=== PATIENT | female | born 1980 | race African-American/Black ===

== ENCOUNTER 2016-04-13 06:16 | Emergency (ER) | payer OTHER, SELFPAY ==
[~2016-04-13 06:16] MED LIST: EFFE37.527 PO; HYDR-4274 PO; PROA1AER IN; REST15CA PO; TRAZ100T4 PO; TRAZ50TA4 PO
[2016-04-13] MEDS ORDERED: ONDANSETRON 4 MG ORAL DISINTEGRATING TAB (S0181) As Ordered ONE (06:54)
--- NOTE | 2016-04-13 08:06 | EDDOCDS ---
Nurse's Notes [facility] Name: Negrito Russ Age: 35 yrs Sex: Female : 1980 Arrival Date: 04/13/2016 Time: 06:16 Bed 17 Private MD: No Pcp Diagnosis: Nausea and vomiting Presentation: 04/13 06:25 Presenting complaint: Patient states: she woke up at 0400 with vomiting was suppose to start job at [employer] this a.m. but unable to stop vomiting. Adult Sepsis Screening: The patient does not have new or worsening altered mentation. Patient's respiratory rate is less than 22. Systolic blood pressure is greater than 100. Patient has a qSOFA score of 0- Negative Sepsis Screen. Suicide/Homicide risk assessment- the patient denies having any suicidal and/or homicidal ideations and does not present with any other emotional, behavioral or mental health complaints. 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 Transition of care: patient was not received from another setting of care. 06:25 Acuity: SWETHA Level 4 cz 06:25 Method Of Arrival: Wheelchair cz Triage Assessment: 06:28 General: Appears uncomfortable. Pain: Location: abdomen Pain currently is 7 out of 10 cz on a pain scale. HIV screening NA for this visit Offered previously. 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 albuterol sulfate 90 mcg/actuation Inhl HFAA 2 puffs every 4-6 hours 2. Effexor 112.5 mg Oral 1 tab daily 3. epi pen as needed 4. mirena 5. prazosin 2 mg Oral cap 1 cap nightly 6. trazodone 100 mg Oral tab 1 tab nightly - PMHx: Asthma; Depression; insommnia; Migraines; - PSHx: right ankle scope; - Social history: Smoking status: Patient states was never smoker of tobacco. No barriers to communication noted, The patient speaks fluent Yakut, Speaks appropriately for age. - Family history: Not pertinent. - : The pt / caregiver states he / she is not on anticoagulants. Home medication list is obtained from [employer] import data. - Exposure Risk Screening:: None identified. Screenin:00 Screening information is obtained from the patient. Fall risk: No risks identified. kcs Assistance ADL's: requires no assistance with activities of daily living. Abuse/DV Screen: The patient / caregiver reports he/she is: not in a situation that causes fear, pain or injury. Nutritional screening: No deficits noted. Advance Directives: Currently, there is no health care proxy. There is no living will. home support is adequate. Assessment: 06:47 Adult Sepsis Screening: The patient does not have new or worsening altered mentation. mgs Patient's respiratory rate is less than 22. Systolic blood pressure is greater than 100. General: Appears in no apparent distress. Neurological: Level of Consciousness is awake, alert. Cardiovascular: Capillary refill < 3 seconds Heart tones S1 S2 present. Respiratory: Airway is patent Respiratory effort is even, unlabored, Respiratory pattern is regular, symmetrical. GI: Abdomen is non- distended Bowel sounds present X 4 quads. Abd is soft and non tender X 4 quads. Derm: Skin is normal. 06:50 Neurological: Reports dizziness. mgs 07:47 Reassessment: Patient ambulatory to and from room to bathroom to void. Returned to room kcs and vomiting loudly - provider informed.. 08:00 Reassessment: Patient anxious for discharge and wants to go now. Still nauseated.. kcs General: Appears comfortable, well developed, well nourished, well groomed, Behavior is cooperative, pleasant. Pain: Denies pain. Neurological: Level of Consciousness is awake, alert. Respiratory: Airway is patent Respiratory effort is even, unlabored, Respiratory pattern is regular, symmetrical. Derm: Skin is intact, is healthy with good turgor, Skin is dry, Skin is normal. Vital Signs: 06:28 BP 140 / 79; Pulse 104; Resp 16; Temp 96.8; Pulse Ox 97% ; cz 07:29 BP 126 / 83; Pulse 84; Resp 16; Temp 97.8(TE); Pulse Ox 97% on R/A; Pain 0/10; dem1 ED Course: 06:18 Patient visited by Anuja Pierre. lja 06:18 Patient moved to Waiting lja 06:23 No Pcp is Private Physician. lja 06:26 Triage Initiated cz 06:30 Patient moved to 17 cz 06:44 Isaias Hager,TACO is Primary Nurse. mgs 06:48 Patient visited by Isaias Hager RN. mgs 06:55 Selwyn Vargas PA is PHCP. btw 06:55 Paige Miranda MD is Attending Physician. btw 07:09 Report received from Federico Hager RN. kcs 07:12 Patient visited by Selwyn Vargas PA. btw 07:22 [facility] is Referral Physician. btw 07:30 Patient visited by Leon Pop. dem1 08:00 The patient / caregiver is instructed regarding the plan of care and ED course. kcs 08:00 No IV's were initiated during this patient's visit. No procedures done that require kcs assistance. 08:05 [facility] Payment Agreement was scanned into [employer] and attached to record. mm15 Administered Medications: 07:08 Drug: Ondansetron ODT 4 mg [ondansetron 4 mg disintegrating tablet (1 tabs)] Route: PO; mgs Point of Care Testing: Urine : 07:08 hCG Reading: Negative; mgs 07:08 Exp: 01/2018; Lot #: [id number]; mgs Ranges: Order Results: There are currently no results for this order. Outcome: 07:22 Discharge ordered by Provider. btw 08:00 Discharge Assessment: Patient awake, alert and oriented x 3. No cognitive and/or kcs functional deficits noted. Patient verbalized understanding of disposition instructions. Patient awake and alert. patient administered narcotics - no. The following High Risk Discharge criteria are identified: None. Discharged to home ambulatory. Condition: stable. Discharge instructions given to patient, Instructed on discharge instructions, follow up and referral plans. medication usage, Demonstrated understanding of instructions, medications, Pt was receptive of discharge instructions/ teaching. No special radiology studies were completed. Property sent home with patient. 08:05 Patient left the ED. kcs Signatures: Stephani Dasilva RN RN kcs Zecher, Calvin, RN RN cz Wolfenden, Brandon, PA PA btw Leon Pop dem1 Diane Valdez mm15 Isaias Hager RN RN mgs AreAnuja lemos MTDD
--- NOTE | 2016-04-13 08:06 | EDDOCDS ---
Physician Documentation [facility] Name: Negrito Russ Age: 35 yrs Sex: Female : 1980 Arrival Date: 04/13/2016 Time: 06:16 Bed 17 Private MD: No Pcp Disposition: 04/13/16 07:22 Discharged to Home/Self Care. Impression: Nausea and vomiting. - Condition is Stable. - Discharge Instructions: Viral Gastroenteritis, [id number], Nausea and Vomiting, [id number]. - Prescriptions for ZOFRAN ODT 4 mg - dissolve 1 tablet by ORAL route 4 times per day As needed do not chew, do not swallow whole; 10 tablet. - Medication Reconciliation, Local Pharmacy Hours form. - Follow up: [facility]; When: Call to arrange an appointment; Reason: Further diagnostic work-up, Recheck today's complaints, Continuance of care, To establish care. - Problem is new. - Symptoms are unchanged. Historical: - Allergies: Aspirin (Hives); seafood (Anaphylaxis); Tree Nuts (Anaphylaxis); - Home Meds: 1. albuterol sulfate 90 mcg/actuation Inhl HFAA 2 puffs every 4-6 hours 2. Effexor 112.5 mg Oral 1 tab daily 3. epi pen as needed 4. mirena 5. prazosin 2 mg Oral cap 1 cap nightly 6. trazodone 100 mg Oral tab 1 tab nightly - PMHx: Asthma; Depression; insommnia; Migraines; - PSHx: right ankle scope; - Social history: Smoking status: Patient states was never smoker of tobacco. No barriers to communication noted, The patient speaks fluent Paraguayan, Speaks appropriately for age. - Family history: Not pertinent. - : The pt / caregiver states he / she is not on anticoagulants. Home medication list is obtained from [employer] import data. - Exposure Risk Screening:: None identified. 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 sd1 06:51 Ondansetron ODT Oral Disintegrating Tablet 4 mg PO once ordered. sd1 08:05 Financial registration complete. mm15 08:05 [facility] Payment Agreement was scanned into [employer] and attached to record. mm15 Point of Care Testing: Urine : 07:08 hCG Reading: Negative; mgs 07:08 Exp: 01/2018; Lot #: [id number]; mgs Ranges: Administered Medications: 07:08 Drug: Ondansetron ODT 4 mg [ondansetron 4 mg disintegrating tablet (1 tabs)] Route: PO; mgs Signatures: Paige Miranda MD MD sd1 Stephani Dasilva RN RN kcs Jonatan Lopez RN RN cz Selwyn Vargas PA PA btw McGrath, Marlynn mm15 Isaias Hager RN mgs The chart was reviewed and I authenticate all verbal orders and agree with the evaluation and treatment provided.Attachments: 08:05 [facility] Payment Agreement mm15 MTDD
--- NOTE | 2016-04-15 09:07 | EDDOCDS ---
Physician Documentation [facility] Name: Negrito Russ Age: 35 yrs Sex: Female : 1980 Arrival Date: 04/13/2016 Time: 06:16 Bed 17 Private MD: No Pcp Disposition: 04/13/16 07:22 Discharged to Home/Self Care. Impression: Nausea and vomiting. - Condition is Stable. - Discharge Instructions: Viral Gastroenteritis, Ppep-yj-Yigt, Nausea and Vomiting, Rqun-dl-Zujo. - Prescriptions for ZOFRAN ODT 4 mg - dissolve 1 tablet by ORAL route 4 times per day As needed do not chew, do not swallow whole; 10 tablet. - Medication Reconciliation, Local Pharmacy Hours form. - Follow up: [facility]; When: Call to arrange an appointment; Reason: Further diagnostic work-up, Recheck today's complaints, Continuance of care, To establish care. - Problem is new. - Symptoms are unchanged. Historical: - Allergies: Aspirin (Hives); seafood (Anaphylaxis); Tree Nuts (Anaphylaxis); - Home Meds: 1. albuterol sulfate 90 mcg/actuation Inhl HFAA 2 puffs every 4-6 hours 2. Effexor 112.5 mg Oral 1 tab daily 3. epi pen as needed 4. mirena 5. prazosin 2 mg Oral cap 1 cap nightly 6. trazodone 100 mg Oral tab 1 tab nightly - PMHx: Asthma; Depression; insommnia; Migraines; - PSHx: right ankle scope; - Social history: Smoking status: Patient states was never smoker of tobacco. No barriers to communication noted, The patient speaks fluent Kuwaiti, Speaks appropriately for age. - Family history: Not pertinent. - : The pt / caregiver states he / she is not on anticoagulants. Home medication list is obtained from [employer] import data. - Exposure Risk Screening:: None identified. 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 sd1 06:51 Ondansetron ODT Oral Disintegrating Tablet 4 mg PO once ordered. sd1 08:05 Financial registration complete. mm15 08:05 [facility] Payment Agreement was scanned into [employer] and attached to record. mm15 12:28 T-Sheet-- Draft Copy was scanned into [employer] and attached to record. gb Point of Care Testing: Urine : 07:08 hCG Reading: Negative; mgs 07:08 Exp: 01/2018; Lot #: [id number]; mgs Ranges: Administered Medications: 07:08 Drug: Ondansetron ODT 4 mg [ondansetron 4 mg disintegrating tablet (1 tabs)] Route: PO; mgs Signatures: Paige Miranda MD MD sd1 Stephani Dasilva RN RN kcs Jonatan Lopez RN RN cz Jacque Gaines, Reg Reg gb Selwyn Vargas PA PA btw McGrath, Marlynn mm15 Isaias Hager RN mgs The chart was reviewed and I authenticate all verbal orders and agree with the evaluation and treatment provided.Attachments: 08:05 [facility] Payment Agreement mm15 12:28 T-Sheet-- Draft Copy gb Chart Complete MTDD
--- NOTE | 2016-04-15 09:07 | EDDOCDS ---
Nurse's Notes [facility] Name: Negrito Russ Age: 35 yrs Sex: Female : 1980 Arrival Date: 04/13/2016 Time: 06:16 Bed 17 Private MD: No Pcp Diagnosis: Nausea and vomiting Presentation: 04/13 06:25 Presenting complaint: Patient states: she woke up at 0400 with vomiting was suppose to start job at [employer] this a.m. but unable to stop vomiting. Adult Sepsis Screening: The patient does not have new or worsening altered mentation. Patient's respiratory rate is less than 22. Systolic blood pressure is greater than 100. Patient has a qSOFA score of 0- Negative Sepsis Screen. Suicide/Homicide risk assessment- the patient denies having any suicidal and/or homicidal ideations and does not present with any other emotional, behavioral or mental health complaints. 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 Transition of care: patient was not received from another setting of care. 06:25 Acuity: SWETHA Level 4 cz 06:25 Method Of Arrival: Wheelchair cz Triage Assessment: 06:28 General: Appears uncomfortable. Pain: Location: abdomen Pain currently is 7 out of 10 cz on a pain scale. HIV screening NA for this visit Offered previously. 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 albuterol sulfate 90 mcg/actuation Inhl HFAA 2 puffs every 4-6 hours 2. Effexor 112.5 mg Oral 1 tab daily 3. epi pen as needed 4. mirena 5. prazosin 2 mg Oral cap 1 cap nightly 6. trazodone 100 mg Oral tab 1 tab nightly - PMHx: Asthma; Depression; insommnia; Migraines; - PSHx: right ankle scope; - Social history: Smoking status: Patient states was never smoker of tobacco. No barriers to communication noted, The patient speaks fluent Italian, Speaks appropriately for age. - Family history: Not pertinent. - : The pt / caregiver states he / she is not on anticoagulants. Home medication list is obtained from [employer] import data. - Exposure Risk Screening:: None identified. Screenin:00 Screening information is obtained from the patient. Fall risk: No risks identified. kcs Assistance ADL's: requires no assistance with activities of daily living. Abuse/DV Screen: The patient / caregiver reports he/she is: not in a situation that causes fear, pain or injury. Nutritional screening: No deficits noted. Advance Directives: Currently, there is no health care proxy. There is no living will. home support is adequate. Assessment: 06:47 Adult Sepsis Screening: The patient does not have new or worsening altered mentation. mgs Patient's respiratory rate is less than 22. Systolic blood pressure is greater than 100. General: Appears in no apparent distress. Neurological: Level of Consciousness is awake, alert. Cardiovascular: Capillary refill < 3 seconds Heart tones S1 S2 present. Respiratory: Airway is patent Respiratory effort is even, unlabored, Respiratory pattern is regular, symmetrical. GI: Abdomen is non- distended Bowel sounds present X 4 quads. Abd is soft and non tender X 4 quads. Derm: Skin is normal. 06:50 Neurological: Reports dizziness. mgs 07:47 Reassessment: Patient ambulatory to and from room to bathroom to void. Returned to room kcs and vomiting loudly - provider informed.. 08:00 Reassessment: Patient anxious for discharge and wants to go now. Still nauseated.. kcs General: Appears comfortable, well developed, well nourished, well groomed, Behavior is cooperative, pleasant. Pain: Denies pain. Neurological: Level of Consciousness is awake, alert. Respiratory: Airway is patent Respiratory effort is even, unlabored, Respiratory pattern is regular, symmetrical. Derm: Skin is intact, is healthy with good turgor, Skin is dry, Skin is normal. Vital Signs: 06:28 BP 140 / 79; Pulse 104; Resp 16; Temp 96.8; Pulse Ox 97% ; cz 07:29 BP 126 / 83; Pulse 84; Resp 16; Temp 97.8(TE); Pulse Ox 97% on R/A; Pain 0/10; dem1 ED Course: 06:18 Patient visited by Anuja Pierre. lja 06:18 Patient moved to Waiting lja 06:23 No Pcp is Private Physician. lja 06:26 Triage Initiated cz 06:30 Patient moved to 17 cz 06:44 Isaias Hager,TACO is Primary Nurse. mgs 06:48 Patient visited by Isaias Hager RN. mgs 06:55 Selwyn Vargas PA is PHCP. btw 06:55 Paige Miranda MD is Attending Physician. btw 07:09 Report received from Federico Hager RN. kcs 07:12 Patient visited by Selwyn Vargas PA. btw 07:22 [facility] is Referral Physician. btw 07:30 Patient visited by Leon Pop. dem1 08:00 The patient / caregiver is instructed regarding the plan of care and ED course. kcs 08:00 No IV's were initiated during this patient's visit. No procedures done that require kcs assistance. 08:05 [facility] Payment Agreement was scanned into [employer] and attached to record. mm15 12:28 T-Sheet-- Draft Copy was scanned into [employer] and attached to record. gb Administered Medications: 07:08 Drug: Ondansetron ODT 4 mg [ondansetron 4 mg disintegrating tablet (1 tabs)] Route: PO; mgs Point of Care Testing: Urine : 07:08 hCG Reading: Negative; mgs 07:08 Exp: 01/2018; Lot #: [id number]; mgs Ranges: Order Results: There are currently no results for this order. Outcome: 07:22 Discharge ordered by Provider. btw 08:00 Discharge Assessment: Patient awake, alert and oriented x 3. No cognitive and/or kcs functional deficits noted. Patient verbalized understanding of disposition instructions. Patient awake and alert. patient administered narcotics - no. The following High Risk Discharge criteria are identified: None. Discharged to home ambulatory. Condition: stable. Discharge instructions given to patient, Instructed on discharge instructions, follow up and referral plans. medication usage, Demonstrated understanding of instructions, medications, Pt was receptive of discharge instructions/ teaching. No special radiology studies were completed. Property sent home with patient. 08:05 Patient left the ED. kcs Signatures: Stephani Dasilva RN RN kcs Zecher, Calvin, RN RN cz Jacque Gaines, Reg Reg gb Selwyn Vargas PA PA btw Leon Pop dem1 Diane Valdez mm15 Isaias Hager RN RN mgs Arel, Anuja lja Chart Complete MTDD
--- NOTE | 2016-04-15 09:07 | EDDOCDS ---
Physician Documentation [facility] Name: Negrito Russ Age: 35 yrs Sex: Female : 1980 Arrival Date: 04/13/2016 Time: 06:16 Bed 17 Private MD: No Pcp Disposition: 04/13/16 07:22 Discharged to Home/Self Care. Impression: Nausea and vomiting. - Condition is Stable. - Discharge Instructions: Viral Gastroenteritis, Sbjb-[id number], Nausea and Vomiting, [id number]-nw-[id number]. - Prescriptions for ZOFRAN ODT 4 mg - dissolve 1 tablet by ORAL route 4 times per day As needed do not chew, do not swallow whole; 10 tablet. - Medication Reconciliation, Local Pharmacy Hours form. - Follow up: [facility]; When: Call to arrange an appointment; Reason: Further diagnostic work-up, Recheck today's complaints, Continuance of care, To establish care. - Problem is new. - Symptoms are unchanged. Historical: - Allergies: Aspirin (Hives); seafood (Anaphylaxis); Tree Nuts (Anaphylaxis); - Home Meds: 1. albuterol sulfate 90 mcg/actuation Inhl HFAA 2 puffs every 4-6 hours 2. Effexor 112.5 mg Oral 1 tab daily 3. epi pen as needed 4. mirena 5. prazosin 2 mg Oral cap 1 cap nightly 6. trazodone 100 mg Oral tab 1 tab nightly - PMHx: Asthma; Depression; insommnia; Migraines; - PSHx: right ankle scope; - Social history: Smoking status: Patient states was never smoker of tobacco. No barriers to communication noted, The patient speaks fluent Bulgarian, Speaks appropriately for age. - Family history: Not pertinent. - : The pt / caregiver states he / she is not on anticoagulants. Home medication list is obtained from [employer] import data. - Exposure Risk Screening:: None identified. 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 sd1 06:51 Ondansetron ODT Oral Disintegrating Tablet 4 mg PO once ordered. sd1 08:05 Financial registration complete. mm15 08:05 [facility] Payment Agreement was scanned into [employer] and attached to record. mm15 12:28 T-Sheet-- Draft Copy was scanned into [employer] and attached to record. gb Point of Care Testing: Urine : 07:08 hCG Reading: Negative; mgs 07:08 Exp: 01/2018; Lot #: [id number]; mgs Ranges: Administered Medications: 07:08 Drug: Ondansetron ODT 4 mg [ondansetron 4 mg disintegrating tablet (1 tabs)] Route: PO; mgs Signatures: Paige Miranda MD MD sd1 Stephani Dasilva RN RN kcs Jonatan Lopez RN RN cz Jacque Gaines, Reg Reg gb Selwyn Vargas PA PA btw McGrath, Marlynn mm15 Isaias Hager RN mgs The chart was reviewed and I authenticate all verbal orders and agree with the evaluation and treatment provided.Attachments: 08:05 [facility] Payment Agreement mm15 12:28 T-Sheet-- Draft Copy gb Chart Complete MTDD
== END 2016-04-13 08:05 | disposition home or self-care (01) ==
LOC: M ED 06:16
DX: R11.2 Nausea with vomiting, unspecified (principal); J45.909 Unspecified asthma, uncomplicated; F32.9 Major depressive disorder, single episode, unspecified; G47.00 Insomnia, unspecified; G43.909 Migraine, unspecified, not intractable, without status migrainosus; Z97.5 Presence of (intrauterine) contraceptive device; Z79.51 Long term (current) use of inhaled steroids; Z79.899 Other long term (current) drug therapy; Z88.6 Allergy status to analgesic agent; Z91.013 Allergy to seafood; Z91.010 Allergy to peanuts

== ENCOUNTER 2016-08-31 22:19 | Emergency (ER) | payer OTHER ==
[~2016-08-31] VITALS: Ht 180.3 cm; Wt 83.9 kg
[2016-09-01] MEDS ORDERED: NORCO, ANEXSIA 5/325MG TABLET (HYDROcodone/ACETAMINOPHEN) PO ONE
[2016-09-01 00:04] VITALS: BP 140/87
--- NOTE | 2016-09-01 07:47 | REP ---
Clinical: Trauma. Technique: AP, lateral, bilateral oblique views of the left ankle. Findings: Minimally displaced fracture of the distal fibular metaphysis / lateral malleolus with overlying soft tissue swelling. Remainder examination appears normal for age. Impression: Fracture of the distal fibular metaphysis / lateral malleolus. Signed by Regino Jones MD 09/01/2016 07:39 A
== END 2016-09-01 00:19 | disposition home or self-care (01) ==
LOC: EDBD 22:19 → M ED 22:46
DX: S82.832A Other fracture of upper and lower end of left fibula, initial encounter for closed fracture (principal); W19.XXXA Unspecified fall, initial encounter; Y92.099 Unspecified place in other non-institutional residence as the place of occurrence of the external cause; Y93.89 Activity, other specified; Y99.8 Other external cause status; Z91.010 Allergy to peanuts; Z91.013 Allergy to seafood; Z88.6 Allergy status to analgesic agent; Z79.899 Other long term (current) drug therapy

== ENCOUNTER 2016-11-03 13:36 | Outpatient (RCR) | payer OTHER ==
[~2016-11-03 13:36] MED LIST changes: -HYDR-4274 PO; +HYDR50TA70 PO; -PROA1AER IN; +PROAAER10 IN; +TRAZ-136 PO; -TRAZ100T4 PO; +TRAZ50TA11 PO; -TRAZ50TA4 PO
[2017-02-13] MEDS ORDERED: PRAZ2CAP PO (10:05)
[2017-02-13] MEDS ORDERED: MUCI600T37 PO (11:32)
[2017-02-13] MEDS ORDERED: ZOFR4TAB3 PO (11:32)
[2017-02-13] MEDS ORDERED: LEVAINH INH (11:32)
[2017-02-13] MEDS ORDERED: AUGM875T28 PO (11:32)
== END 2016-11-08 | disposition home or self-care (01) ==
LOC: M PT 13:36
PROVIDERS: ATTEND Physician Assistant Surgical
DX: Z51.89 Encounter for other specified aftercare (principal); S82.65XD Nondisplaced fracture of lateral malleolus of left fibula, subsequent encounter for closed fracture with routine healing; X58.XXXD Exposure to other specified factors, subsequent encounter; Y92.9 Unspecified place or not applicable; Y93.9 Activity, unspecified; Y99.9 Unspecified external cause status

== ENCOUNTER → 2017-03-07 | Outpatient (CLI) | payer OTHER ==
[~2017-03-07] MED LIST changes: +AUGM875T28 PO; +LEVAINH INH; +MUCI600T37 PO; +PRAZ2CAP PO; +ZOFR4TAB3 PO
--- NOTE | 2017-03-07 08:34 | REP ---
Clinical: Hepatomegaly and abdominal pain. Technique: Arrington scale ultrasound using curved array transducer. Findings: The liver is upper limits of normal in size measuring 17.5 cm craniocaudal length and having subtle rounded inferior border. No focal hepatic lesions are identified. The pancreas is unremarkable and without obvious abnormality. The gallbladder is normal without gallstones, wall thickening or pericholecystic fluid. No biliary ductal dilatation is appreciated, and the common bile duct measures 4.6 mm diameter. The right kidney is normal in reniform shape without hydronephrosis and measures 11.5 x 5.7 x 5.3 cm. No ascites. Visualized portions of the abdominal aorta normal. Impression: Mild hepatomegaly. Signed by Regino Jones MD 03/07/2017 08:25 A
== END ==
LOC: M RAD 07:07
PROVIDERS: ATTEND Nurse Practitioner Adult Health
DX: R93.5 Abnormal findings on diagnostic imaging of other abdominal regions, including retroperitoneum (principal); R16.0 Hepatomegaly, not elsewhere classified

== ENCOUNTER 2017-04-09 16:48 | Emergency (ER) | payer OTHER ==
[2017-04-09] MEDS: PROMETHAZINE INJ 25 MG/ML VIAL (J2550) IV (16:45)
[2017-04-09] MEDS: NS 1,000 ML IV ×2 (16:45→18:30)
[2017-04-09] MEDS: KETOROLAC 30 MG/ML VIAL (J1885) IV (16:45)
== END 2017-04-09 19:36 | disposition home or self-care (01) ==
LOC: M ED 16:48
DX: R11.2 Nausea with vomiting, unspecified (principal); R19.7 Diarrhea, unspecified; Z79.2 Long term (current) use of antibiotics; Z79.899 Other long term (current) drug therapy; Z88.8 Allergy status to other drugs, medicaments and biological substances; Z91.010 Allergy to peanuts; Z91.013 Allergy to seafood
CPT/HCPCS: J1885

== ENCOUNTER → 2017-04-24 | Outpatient (CLI) | payer OTHER | LOC: M RAD 14:23 | DX: R05 Cough (principal) | CPT/HCPCS: 71046 ==

== ENCOUNTER 2017-05-03 22:10 | Emergency (ER) | payer OTHER | END 2017-05-03 23:31 | disposition home or self-care (01) | LOC: M ED 22:10 | DX: S40.012A Contusion of left shoulder, initial encounter (principal); W01.198A Fall on same level from slipping, tripping and stumbling with subsequent striking against other object, initial encounter; Y92.009 Unspecified place in unspecified non-institutional (private) residence as the place of occurrence of the external cause; Z79.899 Other long term (current) drug therapy; Z88.8 Allergy status to other drugs, medicaments and biological substances; Z91.010 Allergy to peanuts; Z91.013 Allergy to seafood | CPT/HCPCS: 73030 ==

== ENCOUNTER → 2017-07-03 | Outpatient (CLI) | payer OTHER ==
[2017-07-03 17:51] LABS: BASO # 0.1 10^3/uL (0.0-0.2); BASO % 1.1 % (0.0-1.0); EOS # 0.1 10^3/uL (0.0-0.50); EOS % 1.5 % (0.0-3.0); HEMATOCRIT 42.8 % (36.0-47.0); HEMOGLOBIN 14.6 g/dl (12.0-16.0); IMMATURE GRANULOCYTE % 0.2 % (0-3.0); LYMPH # 2.4 10^3/uL (1.5-4.5); LYMPH % 36.1 % (24.0-44.0); MEAN CORPUSCULAR HEMOGLOBIN 32.3 pg (27.0-33.0); MEAN CORPUSCULAR HGB CONC 34.1 g/dl (32.0-36.5); MEAN CORPUSCULAR VOLUME 94.7 fl (80.0-96.0); MONO # 0.5 10^3/uL (0.0-0.8); MONO % 7.8 % (0.0-5.0); NEUTROPHILS # 3.5 10^3/uL (1.8-7.7); NEUTROPHILS % 53.3 % (36.0-66.0); PLATELET COUNT, AUTOMATED 284 10^3/uL (150-450); RED BLOOD COUNT 4.52 10^6/uL (4.00-5.40); RED CELL DISTRIBUTION WIDTH 12.6 % (11.5-14.5); WHITE BLOOD COUNT 6.6 10^3/uL (4.0-10.0)
[2017-07-03 18:12] LABS: ALBUMIN 4.4 GM/DL (3.2-5.2); ALBUMIN/GLOBULIN RATIO 1.33 (1.00-1.93); ALKALINE PHOSPHATASE 64 U/L (45-117); ALT/SGPT 26 U/L (12-78); ANION GAP 6 MEQ/L (8-16); AST/SGOT 17 U/L (7-37); BILIRUBIN,TOTAL 0.5 MG/DL (0.2-1.0); BLOOD UREA NITROGEN 8 MG/DL (7-18); CALCIUM LEVEL 8.9 MG/DL (8.5-10.1); CARBON DIOXIDE LEVEL 29 MEQ/L (21-32); CHLORIDE LEVEL 109 MEQ/L (98-107); CREATININE FOR GFR 0.88 MG/DL (0.55-1.30); GLOMERULAR FILTRATION RATE > 60.0 (>60); GLUCOSE, FASTING 81 MG/DL (70-100); POTASSIUM SERUM 4.6 MEQ/L (3.5-5.1); SODIUM LEVEL 144 MEQ/L (136-145); TOTAL PROTEIN 7.7 GM/DL (6.4-8.2)
== END ==
LOC: M WUC 11:41
DX: Z13.9 Encounter for screening, unspecified (principal)
CPT/HCPCS: 80053

== ENCOUNTER 2017-07-23 20:16 | Emergency (ER) | payer OTHER ==
[2017-07-23] MEDS: MORPHINE 4 MG/ML 1ML VIAL/SYRINGE (J2270) IV (20:50)
[2017-07-23] MEDS: ONDANSETRON 4MG/2ML VIAL (J2405) IV (20:50)
[2017-07-23 20:51] LABS: BASO # 0.1 10^3/uL (0.0-0.2); BASO % 1.1 % (0.0-1.0); EOS # 0.1 10^3/uL (0.0-0.50); EOS % 1.8 % (0.0-3.0); HEMATOCRIT 42.1 % (36.0-47.0); HEMOGLOBIN 14.9 g/dl (12.0-15.5); IMMATURE GRANULOCYTE % 0.1 % (0-3.0); LYMPH % 41.5 % (24.0-44.0); MEAN CORPUSCULAR HEMOGLOBIN 32.8 pg (27.0-33.0); MEAN CORPUSCULAR HGB CONC 35.4 g/dl (32.0-36.5); MEAN CORPUSCULAR VOLUME 92.7 fl (80.0-96.0); MONO # 0.4 10^3/uL (0.0-0.8); MONO % 5.2 % (0.0-5.0); NEUTROPHILS # 3.6 10^3/uL (1.8-7.7); NEUTROPHILS % 50.3 % (36.0-66.0); PLATELET COUNT, AUTOMATED 260 10^3/uL (150-450); RED BLOOD COUNT 4.54 10^6/uL (4.00-5.40); RED CELL DISTRIBUTION WIDTH 11.8 % (11.5-14.5); WHITE BLOOD COUNT 7.1 10^3/uL (4.0-10.0)
[2017-07-23] MEDS: NS 1,000 ML IV (20:51)
[2017-07-23 21:11] LABS: ANION GAP 7 MEQ/L (8-16); BLOOD UREA NITROGEN 7 MG/DL (7-18); CALCIUM LEVEL 9.2 MG/DL (8.5-10.1); CARBON DIOXIDE LEVEL 29 MEQ/L (21-32); CHLORIDE LEVEL 105 MEQ/L (98-107); CREATININE FOR GFR 0.83 MG/DL (0.55-1.30); GLOMERULAR FILTRATION RATE > 60.0 (>60); GLUCOSE, FASTING 113 MG/DL (70-100); SODIUM LEVEL 141 MEQ/L (136-145)
[2017-07-23] MEDS: KETOROLAC 30 MG/ML VIAL (J1885) IV (21:54)
[2017-07-23] MEDS: CYCLOBENZAPRINE 10 MG TAB PO (21:54)
== END 2017-07-23 22:06 | disposition home or self-care (01) ==
LOC: M ED 20:16
DX: M62.830 Muscle spasm of back (principal); J45.909 Unspecified asthma, uncomplicated; K58.9 Irritable bowel syndrome, unspecified; Z79.899 Other long term (current) drug therapy; Z88.8 Allergy status to other drugs, medicaments and biological substances; Z91.010 Allergy to peanuts; Z91.013 Allergy to seafood
CPT/HCPCS: J2270

== ENCOUNTER → 2017-08-11 | Outpatient (REF) | payer OTHER ==
[2017-08-11 20:20] LABS: CHLAMYDIA DNA AMPLIFICATION NEGATIVE (NEGATIVE); GC DNA AMPLIFICATION NEGATIVE (NEGATIVE)
[2017-08-12 10:50] LABS: HIV 1&2 SCREEN CENTAUR NEGATIVE (NEGATIVE)
[2017-08-16 14:19] LABS: HPV HYBRID CAPTURE II Negative (Negative)
== END ==
LOC: M LAB REF 16:46
DX: Z11.3 Encounter for screening for infections with a predominantly sexual mode of transmission (principal)

== ENCOUNTER → 2017-11-29 | Outpatient (CLI) | payer OTHER ==
[2017-11-29 14:16] LABS: FREE T4 0.78 NG/DL (0.76-1.46)
[2017-12-01 00:06] LABS: TISSUE TRANSGLUTAMINASE IgA <2 U/mL (0-3)
== END ==
LOC: M LAB 12:23
DX: R11.2 Nausea with vomiting, unspecified (principal)
CPT/HCPCS: 84443

== ENCOUNTER 2017-12-08 12:22 | Day surgery (SDC) | payer OTHER ==
[2017-12-08] MEDS: NS 1,000 ML IV (12:30)
[2017-12-08] MEDS ORDERED: PROPOFOL 200 MG/20 ML VIAL As Ordered ×4 (15:23→15:29)
== END 2017-12-08 16:40 | disposition home or self-care (01) ==
LOC: M SDC 12:22
DX: R11.2 Nausea with vomiting, unspecified (principal); R19.7 Diarrhea, unspecified; D12.2 Benign neoplasm of ascending colon; R10.84 Generalized abdominal pain; R19.4 Change in bowel habit; F32.9 Major depressive disorder, single episode, unspecified; Z87.891 Personal history of nicotine dependence; Z88.8 Allergy status to other drugs, medicaments and biological substances; Z79.899 Other long term (current) drug therapy; Z91.010 Allergy to peanuts; Z91.013 Allergy to seafood
CPT/HCPCS: 43235

== ENCOUNTER 2018-05-09 12:10 | Emergency (ER) | payer OTHER ==
[~2018-05-09] VITALS: Ht 180.3 cm; Wt 75.4 kg
[~2018-05-09 12:10] MED LIST changes: +AMOX; +CYCL10TA PO; +EFFE37.5 PO; -EFFE37.527 PO; +IBUP-1022 PO; +PHEN1SUP6 PR; +RANI150T PO; +TESS100C PO; -TRAZ-136 PO; +TRAZ-160 PO; +TRAZ-163 PO; -TRAZ50TA11 PO; +ZOFR4TAB14 PO; -ZOFR4TAB3 PO
[2018-05-09] MEDS ORDERED: DRIS50003 PO (12:19)
[2018-05-09] MEDS ORDERED: ONDANSETRON 4MG/2ML VIAL (J2405) As Ordered ONE (12:31)
[2018-05-09] MEDS ORDERED: ONDANSETRON 4MG/2ML VIAL (J2405) IV ONE (12:45)
[2018-05-09] MEDS ORDERED: NS 1,000 ML IV ONE (12:45)
[2018-05-09] MEDS ORDERED: KETOROLAC 30 MG/ML VIAL (J1885) IV ONE (13:15)
[2018-05-09] MEDS ORDERED: METOCLOPRAMIDE INJ 10MG/2ML VIAL (J2765) IV ONE (13:15)
[2018-05-09 13:32] LABS: HEMATOCRIT 38.7 % (36.0-47.0); HEMOGLOBIN 13.6 g/dl (12.0-15.5); MEAN CORPUSCULAR HEMOGLOBIN 31.9 pg (27.0-33.0); MEAN CORPUSCULAR HGB CONC 35.1 g/dl (32.0-36.5); MEAN CORPUSCULAR VOLUME 90.8 fl (80.0-96.0); PLATELET COUNT, AUTOMATED 315 10^3/uL (150-450); RED BLOOD COUNT 4.26 10^6/uL (4.00-5.40); WHITE BLOOD COUNT 15.7 10^3/uL (4.0-10.0)
[2018-05-09] MEDS ORDERED: diphenhydrAMINE INJ 50MG/ML VIAL (J1200) IV STA (13:42)
[2018-05-09 14:03] LABS: BLOOD UREA NITROGEN 18 MG/DL (7-18); CALCIUM LEVEL 9.3 MG/DL (8.5-10.1); CARBON DIOXIDE LEVEL 19 MEQ/L (21-32); CHLORIDE LEVEL 101 MEQ/L (98-107); CREATININE FOR GFR 0.96 MG/DL (0.55-1.30); GLOMERULAR FILTRATION RATE > 60.0 (>60); GLUCOSE, FASTING 83 MG/DL (70-100); HCG, SERUM QUANTITATIVE < 1.0 MIU/ML; POTASSIUM SERUM 3.6 MEQ/L (3.5-5.1); SODIUM LEVEL 139 MEQ/L (136-145)
[2018-05-09] MEDS ORDERED: AMOXICILLIN 500 MG CAP PO ONE (14:15)
[2018-05-09] MEDS ORDERED: AMOX875T PO (16:15)
[2018-05-09] MEDS ORDERED: ONDA4TAB6 PO (16:15)
[2018-05-09 16:23] VITALS: BP 107/59
== END 2018-05-09 16:30 | disposition home or self-care (01) ==
LOC: EDBD 12:10 → M ED 12:10
DX: J02.0 Streptococcal pharyngitis (principal); G43.909 Migraine, unspecified, not intractable, without status migrainosus; J45.909 Unspecified asthma, uncomplicated
CPT/HCPCS: 80048; 84702; 85027; 87880; 96361; 96374; 96375; 99284; J1200; J1885; J2405; J2765

== ENCOUNTER 2018-11-11 08:00 | Emergency (ER) | payer OTHER ==
[~2018-11-11] VITALS: Ht 180.3 cm; Wt 76.8 kg
[~2018-11-11 08:00] MED LIST changes: +AMOX875T PO; +DRIS50003 PO; +ONDA4TAB6 PO; -TRAZ-160 PO; -TRAZ-163 PO; +TRAZ-252 PO; +TRAZ-257 PO
[2018-11-11] MEDS ORDERED: TENS1TAB2 PO (08:08)
[2018-11-11] MEDS ORDERED: MIRE1IUD IU (08:08)
[2018-11-11] MEDS ORDERED: diphenhydrAMINE INJ 50MG/ML VIAL (J1200) IV STA (08:29)
[2018-11-11] MEDS ORDERED: NS 1,000 ML IV ONE ×2 (08:30→10:00)
[2018-11-11] MEDS ORDERED: ONDANSETRON 4MG/2ML VIAL (J2405) IV ONE (08:30)
[2018-11-11] MEDS ORDERED: ONDANSETRON 4MG/2ML VIAL (J2405) As Ordered ONE (08:31)
[2018-11-11] MEDS ORDERED: diphenhydrAMINE INJ 50MG/ML VIAL (J1200) As Ordered ONE (08:31)
[2018-11-11 08:37] LABS: BASO % 0.7 % (0.0-1.0); EOS # 0.1 10^3/uL (0.0-0.50); EOS % 1.9 % (0.0-3.0); HEMATOCRIT 38.9 % (36.0-47.0); HEMOGLOBIN 13.3 g/dl (12.0-15.5); LYMPH # 2.1 10^3/uL (1.5-4.5); MEAN CORPUSCULAR HEMOGLOBIN 32.9 pg (27.0-33.0); MEAN CORPUSCULAR HGB CONC 34.2 g/dl (32.0-36.5); MEAN CORPUSCULAR VOLUME 96.3 fl (80.0-96.0); MONO # 0.3 10^3/uL (0.0-0.8); MONO % 5.9 % (0.0-5.0); NEUTROPHILS # 3.2 10^3/uL (1.8-7.7); NEUTROPHILS % 55.2 % (36.0-66.0); PLATELET COUNT, AUTOMATED 238 10^3/uL (150-450); RED BLOOD COUNT 4.04 10^6/uL (4.00-5.40); WHITE BLOOD COUNT 5.8 10^3/uL (4.0-10.0)
[2018-11-11 08:56] LABS: BLOOD UREA NITROGEN 10 MG/DL (7-18); CALCIUM LEVEL 8.3 MG/DL (8.5-10.1); CARBON DIOXIDE LEVEL 27 MEQ/L (21-32); CHLORIDE LEVEL 109 MEQ/L (98-107); CREATININE FOR GFR 0.85 MG/DL (0.55-1.30); GLOMERULAR FILTRATION RATE > 60.0 (>60); GLUCOSE, FASTING 106 MG/DL (70-100); SODIUM LEVEL 144 MEQ/L (136-145)
[2018-11-11 08:57] LABS: ERYTHROCYTE SEDIMENTATION RATE 4 mm/hr (0-20)
--- NOTE | 2018-11-11 09:20 | REP ---
Clinical: Acute headache Comparison: 12/03/2014 . Findings: The ventricles, sulci, and cisterns are normal in position and appearance. Arrington-white differentiation is maintained. No acute intracranial hemorrhage, mass/mass effect, pathology or trauma/injury. No evidence for acute infarction. No extra-axial fluid collection. Calvarium is intact. Paranasal sinuses and mastoid air cells are clear. Impression: Normal noncontrast head CT. No evidence for acute intracranial pathology or trauma/injury. Electronically Signed by Regino Jones MD 11/11/2018 09:12 A
[2018-11-11] MEDS ORDERED: ACETAMINOPHEN 500 MG TAB PO ONE (10:00)
[2018-11-11] MEDS ORDERED: PROCHLORPERAZINE 10 MG/2 ML VIAL (J0780) IV ONE (10:00)
[2018-11-11 10:49] LABS: APPEARANCE, URINE CLEAR (CLEAR); BACTERIA, URINE AUTO NEGATIVE (NEGATIVE); BILIRUBIN, URINE AUTO NEGATIVE (NEGATIVE); BLOOD, URINE BLOOD 2+ (NEGATIVE); COLOR, URINE YELLOW (YELLOW); GLUCOSE, URINE (UA) AUTO NEGATIVE (NEGATIVE); KETONE, URINE AUTO NEGATIVE (NEGATIVE); LEUKOCYTE ESTERASE, URINE AUTO NEGATIVE (NEGATIVE); MUCUS, URINE SMALL (NEGATIVE); NITRITE, URINE AUTO NEGATIVE (NEGATIVE); PROTEIN, URINE AUTO NEGATIVE (NEGATIVE); RBC, URINE AUTO 1 /HPF (0-3); SPECIFIC GRAVITY URINE AUTO 1.031 (1.002-1.035); SQUAMOUS EPITHELIAL CELL UR AU 1 /HPF (0-6); UROBILINOGEN, URINE AUTO 0.2 mg/dL (0.0-2.0); WBC, URINE AUTO 2 /HPF (0-3)
[2018-11-11 12:30] VITALS: BP 114/73
== END 2018-11-11 12:34 | disposition home or self-care (01) ==
LOC: M ED 08:00
DX: G43.909 Migraine, unspecified, not intractable, without status migrainosus (principal); Z87.891 Personal history of nicotine dependence; F12.10 Cannabis abuse, uncomplicated
CPT/HCPCS: 70450; 80048; 81001; 85025; 85652; 96361; 96374; 96375; 99284; J0780; J1200; J2405

== ENCOUNTER 2018-11-29 03:52 | Emergency (ER) | payer OTHER ==
[~2018-11-29 03:52] MED LIST changes: +MIRE1IUD IU; +TENS1TAB2 PO; +TRAZ-163 PO; -TRAZ-257 PO
[2018-11-29] MEDS ORDERED: VENL150C43 PO (04:25)
[2018-11-29] MEDS ORDERED: B-2100TA PO (04:25)
[2018-11-29] MEDS ORDERED: VITA50005 PO (04:25)
[2018-11-29] MEDS ORDERED: PRAZ1CAP PO (04:25)
[2018-11-29] MEDS ORDERED: MAGN400T2 PO (04:25)
[2018-11-29] MEDS ORDERED: KETOROLAC 60 MG/2 ML VIAL (J1885) IM ONE (05:00)
[2018-11-29 05:15] VITALS: BP 130/79
--- NOTE | 2018-11-29 07:33 | REP ---
PA and lateral chest: Comparison is 04/24/2017. There is a 7 mm faintly visible nodule in the left upper lobe peripherally, unchanged. The lung schwartz otherwise clear. Cardiac size is normal. The breanna, mediastinum, and skeletal structures are unremarkable. Impression: 7 ml left lung nodule, unchanged from the comparison study. Otherwise, negative PA and lateral chest. Electronically Signed by Ryan Moore MD 11/29/2018 07:25 A
--- NOTE | 2018-11-29 10:40 | ED PDOC ---
Post-Departure Follow-Up rogelio bennett faxed formal report of cxr for fu Jin Aragon MD Nov 29, 2018 10:40
--- NOTE | 2018-11-30 13:22 | ECGEPIP ---
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
== END 2018-11-29 05:28 | disposition home or self-care (01) ==
LOC: M ED 03:52
DX: R07.1 Chest pain on breathing (principal); J06.9 Acute upper respiratory infection, unspecified; R91.1 Solitary pulmonary nodule; J45.909 Unspecified asthma, uncomplicated; Z79.3 Long term (current) use of hormonal contraceptives; Z79.899 Other long term (current) drug therapy; Z91.010 Allergy to peanuts; Z91.013 Allergy to seafood; Z88.8 Allergy status to other drugs, medicaments and biological substances
CPT/HCPCS: 71046; 93005; 96372; 99284; J1885

== ENCOUNTER 2019-02-01 10:49 | Emergency (ER) | payer OTHER ==
[~2019-02-01] VITALS: Ht 180.3 cm; Wt 75.0 kg
[~2019-02-01 10:49] MED LIST changes: +B-2100TA PO; +MAGN400T2 PO; +PRAZ1CAP PO; +VENL150C43 PO; +VITA50005 PO
[2019-02-01] MEDS ORDERED: RANI1TAB38 PO (11:35)
[2019-02-01] MEDS ORDERED: KETOROLAC 60 MG/2 ML VIAL (J1885) IM ONE (12:15)
[2019-02-01] MEDS ORDERED: ACETAMINOPHEN 325 MG TAB PO ONE (12:15)
[2019-02-01 12:37] LABS: BASO # 0.1 10^3/uL (0.0-0.2); BASO % 1.2 % (0.0-1.0); EOS # 0.1 10^3/uL (0.0-0.5); HEMATOCRIT 42.8 % (36.0-47.0); HEMOGLOBIN 14.8 g/dl (12.0-15.5); LYMPH # 1.8 10^3/uL (1.5-5.0); LYMPH % 29.6 % (24.0-44.0); MEAN CORPUSCULAR HEMOGLOBIN 33.5 pg (27.0-33.0); MEAN CORPUSCULAR HGB CONC 34.6 g/dl (32.0-36.5); MEAN CORPUSCULAR VOLUME 96.8 fl (80.0-96.0); MONO # 0.4 10^3/uL (0.0-0.8); MONO % 5.8 % (0.0-5.0); NEUTROPHILS # 3.7 10^3/uL (1.5-8.5); NEUTROPHILS % 61.2 % (36.0-66.0); PLATELET COUNT, AUTOMATED 281 10^3/uL (150-450); RED BLOOD COUNT 4.42 10^6/uL (4.00-5.40); WHITE BLOOD COUNT 6.1 10^3/uL (4.0-10.0)
[2019-02-01 13:09] LABS: BLOOD UREA NITROGEN 13 MG/DL (7-18); C REACTIVE PROTEIN QUANTITATIV 0.34 MG/DL (0.00-0.30); CALCIUM LEVEL 8.9 MG/DL (8.5-10.1); CARBON DIOXIDE LEVEL 28 MEQ/L (21-32); CHLORIDE LEVEL 103 MEQ/L (98-107); CREATININE FOR GFR 0.82 MG/DL (0.55-1.30); GLOMERULAR FILTRATION RATE > 60.0 (>60); GLUCOSE, FASTING 77 MG/DL (70-100); POTASSIUM SERUM 4.3 MEQ/L (3.5-5.1); SODIUM LEVEL 138 MEQ/L (136-145)
--- NOTE | 2019-02-01 14:21 | REP ---
Left lower extremity Duplex Doppler venous ultrasound: Real time compression and duplex Doppler interrogation of the left lower extremity deep venous system is performed. The left common femoral, superficial femoral and popliteal veins are fully compressible with transducer pressure and demonstrate normal spontaneous and phasic flow, without evidence of deep venous thrombosis. Impression: No evidence of deep venous thrombosis of the left lower extremity femoral popliteal venous system. Electronically Signed by Ryan Arrington MD 02/01/2019 02:13 P
[2019-02-01] MEDS ORDERED: KETO10TAB PO (14:49)
[2019-02-01] MEDS ORDERED: CYCL10TA PO (14:49)
[2019-02-01 14:55] VITALS: BP 132/78
--- NOTE | 2019-02-01 15:27 | REP ---
ULTRASOUND LEFT THIGH SOFT TISSUES: Real-time sonographic evaluation of the left thigh soft tissues performed posteriorly where there is pain and swelling. No mass or fluid collection is seen in this region. Electronically Signed by Ryan Arrington MD 02/03/2019 10:57 A
== END 2019-02-01 14:59 | disposition home or self-care (01) ==
LOC: M ED 10:49
DX: R25.2 Cramp and spasm (principal); J45.909 Unspecified asthma, uncomplicated; G43.909 Migraine, unspecified, not intractable, without status migrainosus; Z79.899 Other long term (current) drug therapy; Z97.5 Presence of (intrauterine) contraceptive device; Z91.010 Allergy to peanuts; Z91.018 Allergy to other foods; Z88.8 Allergy status to other drugs, medicaments and biological substances
CPT/HCPCS: 36415; 76882; 80048; 85025; 85379; 85652; 86140; 93971; 96372; 99283; J1885

== ENCOUNTER 2019-02-26 17:44 | Emergency (ER) | payer OTHER, SELFPAY ==
[~2019-02-26] VITALS: Ht 180.3 cm; Wt 74.5 kg
[~2019-02-26 17:44] MED LIST changes: +KETO10TAB PO; +RANI1TAB38 PO
[2019-02-26] MEDS ORDERED: AMOX875T2 (17:54)
[2019-02-26] MEDS ORDERED: BENZ-18 (17:54)
[2019-02-26] MEDS ORDERED: IPRATROPIUM 0.5MG/ALBUTEROL 2.5MG INH SOL UD 3ML (DUONEB)(J7620) NEB ONE (18:30)
[2019-02-26] MEDS ORDERED: predniSONE 20 MG TAB PO ONE (18:30)
--- NOTE | 2019-02-26 18:48 | ECGEPIP ---
[facility] - ED Test Date: 2019-02-26 Pat Name: MEL CORADO Department: Room: - Gender: Female [employer] Supervisor: KELLEN : 1980 Requested By: PIETRO REBOLLEDO PA-C Order Number: [id number] Reading MD: Paige Miranda Measurements Intervals [place] Rate: 76 P: 77 VA: 183 QRS: 40 QRSD: 83 T: 40 QT: 368 QTc: 414 Interpretive Statements SINUS RHYTHM SIMILAR 11/29/18 Electronically Signed on 02-26-2019 18:47:54 EST by Paige Miranda
--- NOTE | 2019-02-26 19:19 | REP ---
REASON: Dyspnea. FINDINGS: The superior mediastinal structures are midline. The cardiac silhouette is unremarkable in size, shape, and position. The diaphragmatic surfaces of the lungs are regular, and the costophrenic angles are clear. The pulmonary schwartz are clear. The imaged osseous structures are intact. IMPRESSION: There is no acute cardiopulmonary disease. Electronically Signed by Elias Sen DO 02/26/2019 07:30 P
[2019-02-26 19:20] LABS: INFLUENZA A AMPLIFICATION NEGATIVE (NEGATIVE); INFLUENZA B AMPLIFICATION NEGATIVE (NEGATIVE)
[2019-02-26] MEDS ORDERED: PRED20TA PO (19:32)
[2019-02-26 19:45] VITALS: BP 118/80
== END 2019-02-26 19:45 | disposition home or self-care (01) ==
LOC: M ED 17:44
DX: J45.901 Unspecified asthma with (acute) exacerbation (principal); Z88.6 Allergy status to analgesic agent; Z91.010 Allergy to peanuts; Z91.013 Allergy to seafood

== ENCOUNTER 2019-03-24 06:50 | Emergency (ER) | payer OTHER ==
[~2019-03-24] VITALS: Ht 180.3 cm; Wt 74.6 kg
[~2019-03-24 06:50] MED LIST changes: +AMOX875T2; +BENZ-18; +PRED20TA PO
[2019-03-24] MEDS ORDERED: FAMO1TAB11 PO (06:57)
[2019-03-24] MEDS ORDERED: NS 1,000 ML IV ONE (07:30)
[2019-03-24] MEDS ORDERED: KETOROLAC 30 MG/ML VIAL (J1885) IV ONE (07:30)
[2019-03-24 07:39] LABS: BASO % 0.2 % (0.0-1.0); HEMATOCRIT 41.2 % (36.0-47.0); HEMOGLOBIN 14.3 g/dl (12.0-15.5); LYMPH # 1.1 10^3/uL (1.5-5.0); LYMPH % 8.6 % (24.0-44.0); MEAN CORPUSCULAR HEMOGLOBIN 32.9 pg (27.0-33.0); MEAN CORPUSCULAR HGB CONC 34.7 g/dl (32.0-36.5); MEAN CORPUSCULAR VOLUME 94.7 fl (80.0-96.0); MONO # 0.4 10^3/uL (0.0-0.8); MONO % 3.4 % (0.0-5.0); NEUTROPHILS # 11.4 10^3/uL (1.5-8.5); NEUTROPHILS % 87.4 % (36.0-66.0); PLATELET COUNT, AUTOMATED 312 10^3/uL (150-450); RED BLOOD COUNT 4.35 10^6/uL (4.00-5.40)
[2019-03-24] MEDS ORDERED: ACETAMINOPHEN 325 MG TAB PO ONE (07:45)
[2019-03-24] MEDS ORDERED: diphenhydrAMINE INJ 50MG/ML VIAL (J1200) IV ONE (07:45)
[2019-03-24 07:57] LABS: BLOOD UREA NITROGEN 19 MG/DL (7-18); C REACTIVE PROTEIN QUANTITATIV 0.36 MG/DL (0.00-0.30); CALCIUM LEVEL 9.4 MG/DL (8.5-10.1); CARBON DIOXIDE LEVEL 20 MEQ/L (21-32); CHLORIDE LEVEL 104 MEQ/L (98-107); CREATININE FOR GFR 0.93 MG/DL (0.55-1.30); GLOMERULAR FILTRATION RATE > 60.0 (>60); GLUCOSE, FASTING 64 MG/DL (70-100); SODIUM LEVEL 139 MEQ/L (136-145)
[2019-03-24] MEDS ORDERED: METOCLOPRAMIDE INJ 10MG/2ML VIAL (J2765) IV ONE (08:00)
[2019-03-24 08:14] LABS: ERYTHROCYTE SEDIMENTATION RATE 6 mm/hr (0-20)
--- NOTE | 2019-03-24 08:50 | REP ---
Chest x-ray: Two views. History: Cough and dyspnea . Comparison study: February 26, 2019 . Findings: The lungs are well inflated and free of infiltrate. There is a granuloma in the left mid lung zone which is unchanged from the prior study as well as a prior chest x-ray from April 24, 2017. The pleural angles are sharp. The heart size is normal. Pulmonary vasculature is not increased. No significant bony abnormality is seen. Impression: No active disease. Granuloma in the left lung. Otherwise negative. Electronically Signed by Nicko Colbert MD 03/24/2019 08:41 A
[2019-03-24] MEDS ORDERED: ONDANSETRON 4MG/2ML VIAL (J2405) IV ONE (09:15)
[2019-03-24 09:49] VITALS: BP 115/66
[2019-03-24 10:00] LABS: APPEARANCE, URINE CLEAR (CLEAR); BACTERIA, URINE AUTO NEGATIVE (NEGATIVE); BILIRUBIN, URINE AUTO NEGATIVE (NEGATIVE); BLOOD, URINE BLOOD 1+ (NEGATIVE); COLOR, URINE YELLOW (YELLOW); GLUCOSE, URINE (UA) AUTO NEGATIVE (NEGATIVE); KETONE, URINE AUTO 1+ mg/dL (NEGATIVE); LEUKOCYTE ESTERASE, URINE AUTO NEGATIVE (NEGATIVE); MUCUS, URINE SMALL (NEGATIVE); NITRITE, URINE AUTO NEGATIVE (NEGATIVE); PROTEIN, URINE AUTO NEGATIVE (NEGATIVE); RBC, URINE AUTO 1 /HPF (0-3); SPECIFIC GRAVITY URINE AUTO 1.023 (1.002-1.035); SQUAMOUS EPITHELIAL CELL UR AU 0 /HPF (0-6); UROBILINOGEN, URINE AUTO 0.2 mg/dL (0.0-2.0); WBC, URINE AUTO 1 /HPF (0-3)
== END 2019-03-24 10:36 | disposition home or self-care (01) ==
LOC: M ED 06:50
DX: G43.909 Migraine, unspecified, not intractable, without status migrainosus (principal); R05 Cough; J02.9 Acute pharyngitis, unspecified; R11.2 Nausea with vomiting, unspecified; J34.9 Unspecified disorder of nose and nasal sinuses; Z91.010 Allergy to peanuts; Z91.018 Allergy to other foods; Z91.013 Allergy to seafood; Z88.6 Allergy status to analgesic agent; Z79.899 Other long term (current) drug therapy; Z97.5 Presence of (intrauterine) contraceptive device
CPT/HCPCS: 36415; 71046; 80048; 81001; 85025; 85652; 86140; 96361; 96374; 96375; 99284; J1200; J1885; J2405; J2765

== ENCOUNTER → 2019-06-16 | Outpatient (CLI) | payer OTHER ==
[~2019-06-16] MED LIST changes: +FAMO1TAB11 PO; -TRAZ-163 PO; +TRAZ-257 PO
--- NOTE | 2019-06-17 08:28 | REP ---
Right forearm: Two views. History: Rule out fracture. Findings: Two views of the right forearm demonstrate normal bones, joints, and soft tissues. No fracture or subluxation is seen. Impression: Negative right forearm radiographs. Electronically Signed by Nicko Colbert MD 06/17/2019 08:20 A
== END ==
LOC: M RAD 20:02
DX: M79.631 Pain in right forearm (principal)

== ENCOUNTER 2019-07-12 18:35 | Emergency (ER) | payer OTHER ==
[~2019-07-12] VITALS: Ht 180.3 cm; Wt 74.8 kg
[2019-07-12] MEDS ORDERED: VENL37.598 PO (18:47)
[2019-07-12] MEDS ORDERED: LAMO100T3 PO (18:47)
[2019-07-12] MEDS ORDERED: VITA100T39 PO ×2 (18:47)
[2019-07-12] MEDS ORDERED: DICY20TA PO (18:47)
[2019-07-12 19:03] VITALS: BP 142/103
[2019-07-12] MEDS ORDERED: TRAZ1TAB14 PO (19:29)
== END 2019-07-12 21:05 | disposition home or self-care (01) ==
LOC: M ED 18:35
DX: F43.20 Adjustment disorder, unspecified (principal); G43.909 Migraine, unspecified, not intractable, without status migrainosus; Z79.899 Other long term (current) drug therapy; Z91.010 Allergy to peanuts; Z91.018 Allergy to other foods; Z88.8 Allergy status to other drugs, medicaments and biological substances

== ENCOUNTER → 2019-07-20 | Outpatient (REF) | payer OTHER ==
[~2019-07-20] MED LIST changes: +DICY20TA PO; +LAMO100T3 PO; +TRAZ1TAB14 PO; +VENL37.598 PO; +VITA100T39 PO
== END ==
LOC: M LAB REF 10:45
PROVIDERS: ATTEND Physician Assistant
DX: R05 Cough (principal)
CPT/HCPCS: 87486; 87581; 87633; 87798; U0002

== ENCOUNTER → 2019-10-19 | Outpatient (CLI) | payer MEDICAID ==
[~2019-10-19] MED LIST changes: +CYCL-707 PO; -CYCL10TA PO; +LATU20TA PO; +PANT40TA29 PO; +RANI15TA PO
== END ==
LOC: M OUTALCOH 08:11
PROVIDERS: ATTEND Psychiatry & Neurology Addiction Medicine
DX: F10.20 Alcohol dependence, uncomplicated (principal); F12.20 Cannabis dependence, uncomplicated

== ENCOUNTER 2019-11-06 11:49 | Emergency (ER) | payer MEDICAID ==
[~2019-11-06 11:49] MED LIST changes: -LATU20TA PO; -PANT40TA29 PO; -RANI15TA PO
== END 2019-11-06 13:34 | disposition left against medical advice (07) ==
LOC: M ED 11:49
DX: Z53.21 Procedure and treatment not carried out due to patient leaving prior to being seen by health care provider (principal)

== ENCOUNTER 2019-11-08 10:00 | Outpatient (RCR) | payer MEDICAID | END 2019-11-09 | LOC: M OUTALCOH 10:00 | PROVIDERS: ATTEND Psychiatry & Neurology Addiction Medicine | DX: F10.20 Alcohol dependence, uncomplicated (principal); F12.20 Cannabis dependence, uncomplicated ==

== ENCOUNTER → 2019-11-14 | Outpatient (REF) | payer MEDICAID | LOC: M LAB REF 14:45 | PROVIDERS: ATTEND Physician Assistant | DX: K58.2 Mixed irritable bowel syndrome (principal); R10.2 Pelvic and perineal pain; N30.01 Acute cystitis with hematuria ==

== ENCOUNTER → 2019-11-21 | Emergency (ER) | payer MEDICAID ==
[~2019-11-21] MED LIST changes: +LATU20TA PO; +PANT40TA29 PO; +RANI15TA PO
== END | disposition home or self-care (01) ==
LOC: M ED
DX: S01.511A Laceration without foreign body of lip, initial encounter (principal); S01.412A Laceration without foreign body of left cheek and temporomandibular area, initial encounter; W54.0XXA Bitten by dog, initial encounter; Y92.098 Other place in other non-institutional residence as the place of occurrence of the external cause; F32.9 Major depressive disorder, single episode, unspecified; F17.200 Nicotine dependence, unspecified, uncomplicated; Z79.899 Other long term (current) drug therapy; Z88.8 Allergy status to other drugs, medicaments and biological substances; Z88.6 Allergy status to analgesic agent; Z91.018 Allergy to other foods; Z91.013 Allergy to seafood

== ENCOUNTER 2019-12-06 10:00 | Outpatient (RCR) | payer MEDICAID ==
[~2019-12-06 10:00] MED LIST changes: -LATU20TA PO; -PANT40TA29 PO; -RANI15TA PO
== END 2019-12-10 ==
LOC: M OUTALCOH 10:00
PROVIDERS: ATTEND Psychiatry & Neurology Addiction Medicine
DX: F10.20 Alcohol dependence, uncomplicated (principal); F12.20 Cannabis dependence, uncomplicated

== ENCOUNTER 2020-01-09 10:30 | Emergency (ER) | payer MEDICAID, OTHER ==
[~2020-01-09 10:30] MED LIST changes: -LATU20TA PO; -PANT40TA29 PO; -RANI15TA PO
[2020-01-09] MEDS ORDERED: MIRE1IUD IU (10:39)
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
[2020-01-09 12:59] VITALS: BP 145/83
[2020-01-09] MEDS ORDERED: ONDANSETRON 4 MG ORAL DISINTEGRATING TAB PO ONE (13:00)
== END 2020-01-09 13:01 | disposition home or self-care (01) ==
LOC: M ED 10:30
DX: S09.90XA Unspecified injury of head, initial encounter (principal); W22.09XA Striking against other stationary object, initial encounter; Y92.812 Truck as the place of occurrence of the external cause; G43.909 Migraine, unspecified, not intractable, without status migrainosus; F31.9 Bipolar disorder, unspecified; K58.9 Irritable bowel syndrome, unspecified; Z97.5 Presence of (intrauterine) contraceptive device; Z91.010 Allergy to peanuts; Z91.018 Allergy to other foods; Z91.013 Allergy to seafood; Z88.6 Allergy status to analgesic agent; Z79.899 Other long term (current) drug therapy
CPT/HCPCS: 70450; 99283; Q0162

== ENCOUNTER → 2020-01-09 | Outpatient (RCR) | payer MEDICAID ==
[~2020-01-09] MED LIST changes: +LATU20TA PO; +PANT40TA29 PO; +RANI15TA PO
== END ==
LOC: M OUTALCOH 12-24 15:46
PROVIDERS: ATTEND Psychiatry & Neurology Addiction Medicine
DX: F10.20 Alcohol dependence, uncomplicated (principal); F12.20 Cannabis dependence, uncomplicated

== ENCOUNTER 2020-01-21 19:43 | Emergency (ER) | payer MEDICAID ==
[~2020-01-21] VITALS: Ht 180.3 cm; Wt 72.7 kg
[2020-01-21 20:28] LABS: BASO % 0.7 % (0.0-1.0); EOS # 0.1 10^3/uL (0.0-0.5); EOS % 1.8 % (0.0-3.0); HEMOGLOBIN 13.6 g/dl (12.0-15.5); LYMPH # 2.2 10^3/uL (1.5-5.0); LYMPH % 38.9 % (24.0-44.0); MEAN CORPUSCULAR HEMOGLOBIN 31.6 pg (27.0-33.0); MEAN CORPUSCULAR VOLUME 92.8 fl (80.0-96.0); MONO # 0.2 10^3/uL (0.0-0.8); MONO % 3.9 % (0.0-5.0); NEUTROPHILS # 3.1 10^3/uL (1.5-8.5); NEUTROPHILS % 54.5 % (36.0-66.0); PLATELET COUNT, AUTOMATED 240 10^3/uL (150-450); RED BLOOD COUNT 4.31 10^6/uL (4.00-5.40); WHITE BLOOD COUNT 5.7 10^3/uL (4.0-10.0)
[2020-01-21 20:53] LABS: HCG, SERUM QUALITATIVE NEGATIVE (NEGATIVE)
[2020-01-21 20:55] LABS: ALBUMIN 3.9 GM/DL (3.2-5.2); ALT/SGPT 29 U/L (12-78); BILIRUBIN,DIRECT < 0.1 MG/DL (0.0-0.2); BILIRUBIN,TOTAL 0.1 MG/DL (0.2-1.0); BLOOD UREA NITROGEN 11 MG/DL (7-18); CARBON DIOXIDE LEVEL 25 MEQ/L (21-32); CHLORIDE LEVEL 109 MEQ/L (98-107); CREATININE FOR GFR 0.73 MG/DL (0.55-1.30); GLOMERULAR FILTRATION RATE > 60.0 (>58); GLUCOSE, FASTING 106 MG/DL (70-100); POTASSIUM SERUM 3.9 MEQ/L (3.5-5.1); SODIUM LEVEL 141 MEQ/L (136-145); TOTAL PROTEIN 7.6 GM/DL (6.4-8.2)
[2020-01-21 21:08] LABS: ETHYL ALCOHOL (ETHANOL) 0.246 % (0.000-0.010)
[2020-01-21 21:30] VITALS: BP 111/71
[2020-01-21] MEDS ORDERED: ISOVUE-370 76% 100ML VIAL As Ordered ONE (21:30)
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
[2020-01-21] MEDS ORDERED: ACETAMINOPHEN 325 MG TAB PO ONE (23:00)
== END 2020-01-21 23:59 | disposition home or self-care (01) ==
LOC: M ED 19:43
DX: S00.93XA Contusion of unspecified part of head, initial encounter (principal); S06.0X0A Concussion without loss of consciousness, initial encounter; F10.120 Alcohol abuse with intoxication, uncomplicated; V49.40XA Driver injured in collision with unspecified motor vehicles in traffic accident, initial encounter; K21.9 Gastro-esophageal reflux disease without esophagitis; K58.9 Irritable bowel syndrome, unspecified; F31.9 Bipolar disorder, unspecified; Z91.010 Allergy to peanuts; Z88.6 Allergy status to analgesic agent; Z91.013 Allergy to seafood; Z91.018 Allergy to other foods
CPT/HCPCS: 36415; 70450; 71250; 72125; 72128; 72131; 74176; 80048; 80076; 84703; 85025; 99284; G0480

== ENCOUNTER 2020-02-01 08:30 | Outpatient (RCR) | payer MEDICAID ==
[2020-02-10] MEDS ORDERED: RANI15TA PO (20:01)
[2020-02-10] MEDS ORDERED: PRAZ2CAP PO (20:01)
[2020-02-10] MEDS ORDERED: LATU20TA PO (20:01)
[2020-02-10] MEDS ORDERED: TRAZ-257 PO (20:01)
== END 2020-02-09 ==
LOC: M OUTALCOH 08:30
PROVIDERS: ATTEND Psychiatry & Neurology Addiction Medicine
DX: F10.20 Alcohol dependence, uncomplicated (principal); F12.20 Cannabis dependence, uncomplicated

== ENCOUNTER 2020-02-10 16:08 | Observation (INO) | payer OTHER ==
[2020-02-10 19:00] VITALS: BP 118/70
[2020-02-10 19:03] VITALS: BP 136/88
[2020-02-10 19:05] VITALS: BP 134/90
[2020-02-10] MEDS ORDERED: MOM 30ML SUSPENSION UDC PO PRN (19:15)
[2020-02-10] MEDS ORDERED: MAALOX 30 ML SUSP *UDC PO PRN (19:15)
[2020-02-10] MEDS ORDERED: ACETAMINOPHEN TAB 650MG DOSE (2X325MG) PO PRN (19:15)
[2020-02-10 19:50] LABS: HEMATOCRIT 35.5 % (36.0-47.0); MEAN CORPUSCULAR HEMOGLOBIN 32.2 pg (27.0-33.0); MEAN CORPUSCULAR HGB CONC 33.8 g/dl (32.0-36.5); MEAN CORPUSCULAR VOLUME 95.2 fl (80.0-96.0); PLATELET COUNT, AUTOMATED 224 10^3/uL (150-450); RED BLOOD COUNT 3.73 10^6/uL (4.00-5.40); WHITE BLOOD COUNT 6.7 10^3/uL (4.0-10.0)
--- NOTE | 2020-02-10 19:54 | HPEPDOC ---
[facility] Medical History & Physical Date of Admission Feb 10, 2020 Date of Service: Feb 10, 2020 Attending Physician: PERFECTO SANTANA MD History and Physical TIME OF SERVICE: 717PM CHIEF COMPLAINT: vomiting blood HISTORY OF PRESENT ILLNESS: This 39 yr old F presented to [facility] w c/o vomiting blood. She had one episode of vomiting blood a few days ago but didnt' go to the hospital for evaluation. Today she had 3 more episodes of vomiting, with 1 out of the 3 episodes containing blood. She denies having abdominal pain, fevers, chills, eating out at a restaurant or eating food that she didnt' cook. She has had some lower back pain. 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 Contrary to what told me, ' notes documented LUQ, epigastric and RUB abdominal pain. Her initial HR was 100 and BP was 144/94. Her CBC, CMP, lactic acid, lipase, bHCG, UA, UDS were unremarkable except for an INR of 0.91, Hg of 13.4 and THC in the urine. CT scan of the abdomen/pelvis identified diverticulosis, IUD and nephrolithiasis. She was given ondansetron, PPI and NS prior to transfer here for possible Gen Surg eval. REVIEW OF SYSTEMS: 12 point review of systems negative except as listed in HPI PAST MEDICAL/ SURGICAL HISTORY: Bipolar disorder Irritable bowel syndrome Asthma Ankle surgery SOCIAL HISTORY: - tobacco - alcohol quit drinking heavily + THC was in the has one son FAMILY HISTORY: unknown because she was adopted ALLERGIES: Please see below. HOME MEDICATIONS: Please see below. PHYSICAL EXAMINATION: vitals pending.... GENERAL APPEARANCE: well nourished /well developed /NAD HEENT: EOMI / no conjunctival pallor / MM pink but dry / no scleral icterus CARDIOVASCULAR: RRR/NMRG/ radial pulses intact LUNGS: CTAB on RA/ no cough ABDOMEN: flat/ soft & NT with palpation MUSCULOSKELETAL: ANITHA x 4 extremities/ no BLE edema INTEGUMENT: no generalized pallor / capillary refill <3 sec NEUROLOGICAL: CN 2-12 intact / speech not dysarthric PSYCHIATRIC: A&Ox 3 / able to understand and follow all commands LABORATORY DATA: see HPI IMAGING: see HPI ASSESSMENT: is a 39 yr old w a hx of Asthma, IBS, & Bipolar disorder who presented to [facility] w c/o 2 episodes of hematemesis over the last few days associated with back pain; her Hg was 13.[address] scan was unrevealing; she was transferred for a higher level of care and will be admitted under observation for possible UGIB. PLAN: 1. GI Bleed (Upper) May be due to: PUD, esophageal varices, gastric or duodenal varices, erosive gastritis due to stress, other cause TBD Rembert-Blatchford Score to identify low risk UGIB = 1 = high risk for BI bleed Rockall Score (pre-endoscopy) to determine severity of GIB = 0 points Plan: admit to medical floor / CLD / Carafate / hold famotidine & ranitidine / bc she has a remote hx of heavy drinking will order IV PPI / zofran PRN / f/u serial Hg Q6H, stool occult & H pylori / avoid NSAIDs / f/u serial Hg Q6H, pending results the day time team may consult Gen surg for c-scope 2. Asthma Stable Plan: albuterol PRN 3. IBS Plan: dicyclomine 4. Bipolar Disorder / PTSD / Insomnia Plan: lurasidone, trazodone, venlafaxine & prazosin for PTSD related nightmares DVT Px: SCDs DISPO: likely home after less than 2 midnight's stay if Hg remains stable Laboratory Data CBC/BMP Home Medications Scheduled Albuterol Sulfate (Proair Hfa) 108 Mcg/Act Aer, 108 MCG IN QHS for asthma 2 puffs by inhalation at bedtime as needed for wheezing and/or shortness of breath Famotidine (Famotidine) 20 Mg Tablet, 20 MG PO BID Lurasidone Hydrochloride (Latuda) 20 Mg Tablet, 20 MG PO DAILY Magnesium Oxide (Magnesium Oxide) 400 Mg Tablet, 400 MG PO DAILY Prazosin Hcl (Prazosin HCl) 2 Mg Capsule, 6 MG PO QPM Riboflavin (Vitamin B2) (Vitamin B-2) 100 Mg Tablet, 200 MG PO BID Trazodone HCl (Trazodone HCl) 100 Mg Tablet, 100 MG PO QPM Venlafaxine HCl (Venlafaxine HCl ER) 37.5 Mg Cap.er.24h, 112.5 MG PO DAILY Scheduled PRN Dicyclomine HCl (Dicyclomine HCl) 20 Mg Tablet, 20 MG PO TID PRN for irritable bowel symptoms Ranitidine Hcl (Ranitidine HCl) 150 Mg Tablet, 150 MG PO TID PRN for GI UPSET Miscellaneous Medications Levonorgestrel (Mirena) 1 Each Iud, 20 MCG IU Allergies Coded Allergies: Nut Tree (Unverified Allergy, Intermediate, 07/23/17) Peanut (Verified Allergy, Unknown, 06/07/14) aspirin (Verified Allergy, Unknown, hives, 11/11/18) bupropion (Verified Allergy, Unknown, 02/10/20) sertraline (Verified Allergy, Unknown, 02/10/20) shellfish derived (Verified Allergy, Unknown, anaphylatic, 11/11/18) A-FIB/CHADSVASC A-FIB History Current/History of A-Fib/PAF?: No Current PO Anticoag Therapy: No PERFECTO SANTANA MD Feb 10, 2020 19:54
[2020-02-10 20:01] LABS: INR 0.99; PROTHROMBIN TIME 13.3 SECONDS (12.5-14.3)
[2020-02-10] MEDS ORDERED: RANI15TA PO (20:01)
[2020-02-10] MEDS ORDERED: PRAZ2CAP PO (20:01)
[2020-02-10] MEDS ORDERED: LATU20TA PO (20:01)
[2020-02-10] MEDS ORDERED: TRAZ-257 PO (20:01)
[2020-02-10 20:15] LABS: ALBUMIN 3.6 GM/DL (3.2-5.2); ALT/SGPT 24 U/L (12-78); BILIRUBIN,TOTAL 0.7 MG/DL (0.2-1.0); BLOOD UREA NITROGEN 14 MG/DL (7-18); CALCIUM LEVEL 8.2 MG/DL (8.5-10.1); CARBON DIOXIDE LEVEL 24 MEQ/L (21-32); CHLORIDE LEVEL 105 MEQ/L (98-107); CREATININE FOR GFR 0.69 MG/DL (0.55-1.30); GLOMERULAR FILTRATION RATE > 60.0 (>58); GLUCOSE, FASTING 70 MG/DL (70-100); LIPASE 56 U/L (73-393); POTASSIUM SERUM 3.8 MEQ/L (3.5-5.1); SODIUM LEVEL 138 MEQ/L (136-145); TOTAL PROTEIN 6.4 GM/DL (6.4-8.2)
[2020-02-10] MEDS ORDERED: PRAZOSIN 1 MG CAP PO SCH (21:00)
[2020-02-10] MEDS ORDERED: traZODone 100 MG TAB PO SCH (21:00)
[2020-02-10] MEDS ORDERED: DICYCLOMINE INJ 20MG/2ML (J0500) IM SCH (21:00)
[2020-02-10] MEDS ORDERED: ONDANSETRON 4MG/2ML VIAL IV PRN (21:00)
[2020-02-10] MEDS ORDERED: ALBUTEROL 90 MCG/ACT 8GM HFA INHALER INH PRN (21:00)
[2020-02-10 22:00] VITALS: BP 133/89
[2020-02-10] MEDS: PANTOPRAZOLE 40MG VIAL (C9113 PER 1) IV SCH (22:02)
[2020-02-10 22:03] VITALS: BP 118/70
[2020-02-10] MEDS: SUCRALFATE 1 GM TAB PO SCH (22:03)
[2020-02-10] MEDS ORDERED: DICYCLOMINE 10 MG CAP PO PRN (22:15)
[2020-02-11 02:00] VITALS: BP 133/86
[2020-02-11 06:00] VITALS: BP 131/84
[2020-02-11 06:03] VITALS: BP 144/96
[2020-02-11 06:05] VITALS: BP 125/84
[2020-02-11 06:25] LABS: HEMATOCRIT 38.2 % (36.0-47.0); MEAN CORPUSCULAR HEMOGLOBIN 32.5 pg (27.0-33.0); MEAN CORPUSCULAR VOLUME 95.5 fl (80.0-96.0); PLATELET COUNT, AUTOMATED 194 10^3/uL (150-450); WHITE BLOOD COUNT 4.6 10^3/uL (4.0-10.0)
[2020-02-11 06:48] LABS: BLOOD UREA NITROGEN 11 MG/DL (7-18); CALCIUM LEVEL 8.3 MG/DL (8.5-10.1); CARBON DIOXIDE LEVEL 25 MEQ/L (21-32); CHLORIDE LEVEL 102 MEQ/L (98-107); CREATININE FOR GFR 0.77 MG/DL (0.55-1.30); GLOMERULAR FILTRATION RATE > 60.0 (>58); GLUCOSE, FASTING 79 MG/DL (70-100); MAGNESIUM LEVEL 1.8 MG/DL (1.8-2.4); POTASSIUM SERUM 3.7 MEQ/L (3.5-5.1); SODIUM LEVEL 136 MEQ/L (136-145)
[2020-02-11] MEDS ORDERED: VENLAFAXINE **XR** 37.5 MG CAPSULE PO SCH (09:00)
[2020-02-11] MEDS ORDERED: LURASIDONE 20 MG TAB (LATUDA) PO SCH (09:00)
[2020-02-11] MEDS ORDERED: INFLUENZA QUADRIVALENT PF VACCINE 0.5ML SYRINGE IM ONE (09:00)
[2020-02-11] MEDS: SUCRALFATE 1 GM TAB PO SCH (09:41)
[2020-02-11] MEDS: PANTOPRAZOLE 40MG VIAL (C9113 PER 1) IV SCH (09:41)
[2020-02-11 10:00] VITALS: BP 151/94
[2020-02-11] MEDS ORDERED: PANT40TA29 PO (13:27)
[2020-02-11 14:00] VITALS: BP 148/94
--- NOTE | 2020-02-11 17:04 | DS.PDOC ---
Discharge Summary General Date of Admission Feb 10, 2020 at 19:06 Date of Discharge Feb 11, 2020 at 13:00 Attending Physician: OLIVIA CHIANG MD Discharge Summary PROCEDURES PERFORMED DURING STAY: None. ADMITTING DIAGNOSES: 1. Suspected GI bleed 2. Bipolar disease 3. Irritable bowel syndrome 4. Asthma DISCHARGE DIAGNOSES: 1. Bipolar disease 2. Irritable bowel syndrome 3. Asthma COMPLICATIONS/CHIEF COMPLAINT: G.i. Bleed. HISTORY OF PRESENT ILLNESS: This 39 yr old F presented to [facility] w c/o vomiting blood. She had one episode of vomiting blood a few days ago but d idnt' go to the hospital for evaluation. Next day she had 3 more episodes of vomiting, with 1 out of the 3 episodes containing blood. She denies having abdominal pain, fevers, chills, eating out at a restaurant or eating food that she didnt' cook. She has had some lower back pain. 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 HOSPITAL COURSE: Patient was transferred to [facility] for further management of her upper GI bleed. Her hemoglobin was stable overnight. She was given IV fluids, no further drop in hemoglobin noted. Patient denied noticing any dark stool. She denies having any epigastric pain, reports having some mildly back pain radiating to the groin region most likely nephrolithiasis, she says the pain is not that bothersome. DISCHARGE MEDICATIONS: Please see below. ALLERGIES: Please see below. PHYSICAL EXAMINATION ON DISCHARGE: VITAL SIGNS: Please see below. General: Patient is awake, alert, oriented times three, sitting in chair/on bed , no apparent distress. Cardiovascular: S1, S2, normal rhythm, no murmur, rub, or gallop Respiratory: Chest is clear to auscultation bilaterally, No rhonchi, wheezes or rubs. Abdomen: Soft, bowel sounds positive, no bruits. She has some tenderness on deep palpation in left lower quadrant, most likely from her diverticulosis/IBS. Other quadrants no tenderness noted. Central nervous system (EDITOR SOUND): Awake, alert and fully oriented. Skin: No rashes, lesions, ulcerations, subcutaneous nodules or induration. LABORATORY DATA: Please see below. IMAGING: CT scan of abdomen/pelvis: 01/21/2020, reported as nonobstructing nephrolithiasis bilaterally, diverticulosis coli, no acute fractures or traumatic visceral injury identified. Off note: Patient had an EGD and colonoscopy done on 12/09/[address] Tobias, pathology: Ascending colon polyp: Fragments of hyperplastic polyp. Repeat colonoscopy at age [age] years old. EGD no acute findings noted. PROGNOSIS: Good ACTIVITY: As tolerated. DIET: Regular diet DISCHARGE PLAN: Going home, with pantoprazole 40 mg by mouth. DISPOSITION: 01 Home, Self-Care. DISCHARGE INSTRUCTIONS: 1. Follow up with your PCP in 3-5 days. 2. Referral to GI clinic for outpatient EGD, as patient had upper GI bleeding. ITEMS TO FOLLOWUP ON ON OUTPATIENT: 1. Follow up with GI for EGD. 2. Follow-up with PCP in 3-5 days DISCHARGE CONDITION: Stable. TIME SPENT ON DISCHARGE: Greater than 30 minutes. Vital Signs/I&Os Vital Signs Date Time Temp Pulse Resp B/P (MAP) Pulse Ox O2 Delivery O2 Flow Rate FiO2 02/11/20 14:00 98.0 86 17 148/94 (112) 100 Room Air I&O- Last 24 Hours up to 6 AM 02/11/20 06:00 Intake Total 120 ml Output Total 0 ml Balance 120 ml Laboratory Data Labs 24H Laboratory Tests 2 02/10/20 19:30: Nucleated Red Blood Cells % (auto) 0.0, Prothrombin Time 13.3, Prothromb Time International Ratio 0.99, Activated Partial Thromboplast Time 28.0, Anion Gap 9, Glomerular Filtration Rate > 60.0, Calcium Level 8.2L, Total Bilirubin 0.7, Aspartate Amino Transf (AST/SGOT) 21, Alanine Aminotransferase (ALT/SGPT) 24, Alkaline Phosphatase 54, Total Protein 6.4, Albumin 3.6, Albumin/Globulin Ratio 1.3, Lipase 56L 02/11/20 06:11: Nucleated Red Blood Cells % (auto) 0.0, Anion Gap 9, Glomerular Filtration Rate > 60.0, Calcium Level 8.3L, Magnesium Level 1.8 CBC/BMP Laboratory Tests 02/10/20 19:30 02/11/20 01:18 02/11/20 06:11 02/11/20 13:33 Discharge Medications Scheduled Albuterol Sulfate (Proair Hfa) 108 Mcg/Act Aer, 108 MCG IN QHS for asthma, (Reported) 2 puffs by inhalation at bedtime as needed for wheezing and/or shortness of breath Lurasidone Hydrochloride (Latuda) 20 Mg Tablet, 20 MG PO DAILY, (Reported) Magnesium Oxide (Magnesium Oxide) 400 Mg Tablet, 400 MG PO DAILY, (Reported) Pantoprazole Sodium (Pantoprazole Sodium) 40 Mg Tablet.dr, 40 MG PO DAILY Prazosin Hcl (Prazosin HCl) 2 Mg Capsule, 6 MG PO QPM, (Reported) Riboflavin (Vitamin B2) (Vitamin B-2) 100 Mg Tablet, 200 MG PO BID, (Reported) Trazodone HCl (Trazodone HCl) 100 Mg Tablet, 100 MG PO QPM, (Reported) Venlafaxine HCl (Venlafaxine HCl ER) 37.5 Mg Cap.er.24h, 112.5 MG PO DAILY, (Reported) Scheduled PRN Dicyclomine HCl (Dicyclomine HCl) 20 Mg Tablet, 20 MG PO TID PRN for irritable bowel symptoms, (Reported) Miscellaneous Medications Levonorgestrel (Mirena) 1 Each Iud, 20 MCG IU, (Reported) Allergies Coded Allergies: Nut Tree (Unverified Allergy, Intermediate, 07/23/17) Peanut (Verified Allergy, Unknown, 06/07/14) aspirin (Verified Allergy, Unknown, hives, 11/11/18) bupropion (Verified Allergy, Unknown, 02/10/20) sertraline (Verified Allergy, Unknown, 02/10/20) shellfish derived (Verified Allergy, Unknown, anaphylatic, 11/11/18) GME ATTESTATION GME ATTESTATION My faculty preceptor for this patient encounter was physically present during the encounter and was fully available. All aspects of the patient interview, examination, medical decision making process, and medical care plan development were reviewed and approved by the faculty preceptor. The faculty preceptor is aware and concurs with the plan as stated in the body of this note and will attest to such by his/her cosignature. ATTENDING NOTE Patient was seen and examined by me personally with the residents/ students. I agree with the above assessment and plan Marc Cruz MD Feb 11, 2020 17:04 OLIVIA CHIANG MD Feb 12, 2020 12:47
== END 2020-02-11 14:45 | disposition home or self-care (01) ==
LOC: M MS5PR 19:06 → UNDOADMIN 19:06 → UNDODISIN 02-11 14:45
PROVIDERS: ADMIT General Practice; ATTEND General Practice
DX: F31.9 Bipolar disorder, unspecified (principal); K58.8 Other irritable bowel syndrome; J45.909 Unspecified asthma, uncomplicated; I10 Essential (primary) hypertension; K21.9 Gastro-esophageal reflux disease without esophagitis; K57.92 Diverticulitis of intestine, part unspecified, without perforation or abscess without bleeding; Z79.899 Other long term (current) drug therapy; Z91.010 Allergy to peanuts; Z88.8 Allergy status to other drugs, medicaments and biological substances; Z91.013 Allergy to seafood
CPT/HCPCS: 36415; 80048; 80053; 83690; 83735; 85018; 85027; 85610; 85730; 86850; 86900; 86901; 90471; 90686; 96374; 96376; C9113

== ENCOUNTER 2020-04-04 10:25 | Emergency (ER) | payer OTHER, MEDICAID ==
[~2020-04-04] VITALS: Ht 180.3 cm; Wt 74.9 kg
[~2020-04-04 10:25] MED LIST changes: +LATU20TA PO; +PANT40TA29 PO; +RANI15TA PO
[2020-04-04] MEDS ORDERED: diphenhydrAMINE 50MG/ML VIAL (J1200) IV ONE (11:30)
[2020-04-04] MEDS ORDERED: NS 1,000 ML IV ONE ×2 (11:30→13:15)
[2020-04-04] MEDS ORDERED: KETOROLAC 30 MG/ML 1ML VIAL IV ONE (11:30)
[2020-04-04] MEDS ORDERED: ACETAMINOPHEN 500 MG TAB PO ONE (11:45)
[2020-04-04] MEDS ORDERED: CAPSAICIN 0.025% CR 60 GM TOP ONE (11:45)
[2020-04-04 12:05] LABS: RSV AMPLIFICATION NEGATIVE (NEGATIVE)
[2020-04-04 12:38] LABS: BASO % 0.3 % (0.0-1.0); HEMATOCRIT 44.5 % (36.0-47.0); HEMOGLOBIN 15.3 g/dl (12.0-15.5); LYMPH # 0.9 10^3/uL (1.5-5.0); LYMPH % 5.8 % (24.0-44.0); MEAN CORPUSCULAR HEMOGLOBIN 32.4 pg (27.0-33.0); MEAN CORPUSCULAR HGB CONC 34.4 g/dl (32.0-36.5); MEAN CORPUSCULAR VOLUME 94.3 fl (80.0-96.0); MONO # 0.4 10^3/uL (0.0-0.8); MONO % 2.9 % (0.0-5.0); NEUTROPHILS # 13.5 10^3/uL (1.5-8.5); NEUTROPHILS % 90.5 % (36.0-66.0); PLATELET COUNT, AUTOMATED 322 10^3/uL (150-450); RED BLOOD COUNT 4.72 10^6/uL (4.00-5.40)
[2020-04-04 13:02] LABS: ALBUMIN 4.5 GM/DL (3.2-5.2); ALT/SGPT 34 U/L (12-78); BILIRUBIN,DIRECT 0.1 MG/DL (0.0-0.2); BILIRUBIN,TOTAL 0.3 MG/DL (0.2-1.0); BLOOD UREA NITROGEN 22 MG/DL (7-18); CALCIUM LEVEL 9.1 MG/DL (8.5-10.1); CARBON DIOXIDE LEVEL 23 MEQ/L (21-32); CHLORIDE LEVEL 102 MEQ/L (98-107); CREATININE FOR GFR 0.97 MG/DL (0.55-1.30); GLOMERULAR FILTRATION RATE > 60.0 (>58); GLUCOSE, FASTING 85 MG/DL (70-100); HCG, SERUM QUALITATIVE NEGATIVE (NEGATIVE); LIPASE 208 U/L (73-393); POTASSIUM SERUM 4.3 MEQ/L (3.5-5.1); SODIUM LEVEL 139 MEQ/L (136-145); TOTAL PROTEIN 8.1 GM/DL (6.4-8.2)
[2020-04-04] MEDS ORDERED: PIPERACILLIN/TAZOBACTAM SOD 4.5 GM in D5W MINI-BAG PLUS 50 ML IV ONE (13:15)
[2020-04-04] MEDS ORDERED: ISOVUE-370 76% 100ML VIAL As Ordered ONE (13:27)
[2020-04-04 14:27] LABS: AMPHETAMINES LEVEL URINE NEGATIVE (NEGATIVE); BARBITURATES URINE NEGATIVE (NEGATIVE); BENZODIAZEPINES URINE NEGATIVE (NEGATIVE); CANNABINOIDS URINE POSITIVE (NEGATIVE); COCAINE METABOLITE URINE NEGATIVE (NEGATIVE); METHADONE URINE NEGATIVE (NEGATIVE); OPIATES URINE NEGATIVE (NEGATIVE); PHENCYCLIDINE URINE NEGATIVE (NEGATIVE)
--- NOTE | 2020-04-04 14:49 | REP ---
INDICATION: severe headache, febrile COMPARISON: 01/21/2020 TECHNIQUE: Axial noncontrast images from the skull base to the vertex with coronal reformations. This CT examination was performed using the following dose reduction techniques: Automated exposure control, adjustment of mA and/or kv according to the patient's size, and use of iterative reconstruction technique. FINDINGS: The ventricles, sulci, and cisterns are normal in position and appearance. Arrington-white differentiation is maintained. No acute intracranial hemorrhage, mass/mass effect, pathology or trauma/injury. No evidence for acute infarction. No extra-axial fluid collection. Calvarium is intact. Paranasal sinuses and mastoid air cells are clear. IMPRESSION: Normal noncontrast head CT. No evidence for acute intracranial pathology or trauma/injury. <Electronically signed by Regino Jones > 04/04/20 [id number]
--- NOTE | 2020-04-04 14:55 | REP ---
INDICATION: diffuse abdominal pain, febrile. COMPARISON: 01/21/2020 TECHNIQUE: Axial contrast-enhanced images from the lung bases to the pubic symphysis using 100 cc Isovue 370 intravenous contrast material. Coronal and sagittal reformations obtained. This CT examination was performed using the following dose reduction techniques: Automated exposure control, adjustment of mA and/or kv according to the patient's size, and the use of iterative reconstruction technique. FINDINGS: Lung bases are clear. Visualized heart and pericardium normal. Hepatosteatosis noted without focal hepatic lesion. Spleen, pancreas, gallbladder, bilateral adrenal glands and kidneys are normal. Incidental small bilateral nonobstructing nephroliths are identified measuring up to approximately 2.5 mm. The enteric system is without obstruction and a normal terminal ileum, cecum and appendix are identified in the right lower quadrant. There is mild mucosal thickening and subtle prominence to the sigmoid colon raising the possibility of infectious/inflammatory sigmoid colitis. Few scattered sigmoid diverticula noted without acute diverticulitis. Pelvis demonstrates normal bladder and age-appropriate uterus/adnexa. No ascites. No free air. No intraperitoneal or retroperitoneal adenopathy. Abdominal aorta and vasculature appear normal. Musculoskeletal structures are intact and without acute osseous abnormality. IMPRESSION: 1. Cannot exclude a very mild sigmoid colitis. 2. Hepatosteatosis. 3. No free air, free fluid, adenopathy, or inflammatory stranding. 4. Nonacute findings include bilateral nephroliths and scattered diverticula. <Electronically signed by Regino Jones > 04/04/20 [id number]
--- NOTE | 2020-04-04 15:22 | REP ---
INDICATION: cough, febrile COMPARISON: 03/24/2019 TECHNIQUE: PA and lateral. FINDINGS: The mediastinum and cardiac silhouette are normal. The lung schwartz are clear and without acute consolidation, effusion, or pneumothorax. Stable subcentimeter calcified nodule in the periphery of the left upper lung zone again noted. The skeletal structures are intact and normal. IMPRESSION: No acute cardiopulmonary process. <Electronically signed by Regino Jones > 04/04/20 [id number]
[2020-04-04] MEDS ORDERED: AUGM875T28 PO (16:55)
[2020-04-04 17:12] VITALS: BP 124/93
== END 2020-04-04 17:13 | disposition home or self-care (01) ==
LOC: M ED 10:25
DX: G43.909 Migraine, unspecified, not intractable, without status migrainosus (principal); T40.7X1A Poisoning by cannabis (derivatives), accidental (unintentional), initial encounter; R11.2 Nausea with vomiting, unspecified; N20.0 Calculus of kidney; R00.0 Tachycardia, unspecified; F41.9 Anxiety disorder, unspecified; F32.9 Major depressive disorder, single episode, unspecified; Z91.013 Allergy to seafood; Z91.018 Allergy to other foods; Z91.010 Allergy to peanuts; Z88.6 Allergy status to analgesic agent; Z88.8 Allergy status to other drugs, medicaments and biological substances; Z79.899 Other long term (current) drug therapy
CPT/HCPCS: 70450; 71046; 74177; 80048; 80076; 80307; 81001; 83605; 83690; 84703; 85025; 87040; 87631; 96361; 96365; 96375; 99284; J1200; J1885; J2543; Q9967

== ENCOUNTER 2020-04-09 09:19 | Emergency (ER) | payer MEDICAID, OTHER ==
[~2020-04-09] VITALS: Ht 180.3 cm; Wt 78.1 kg
[2020-04-09] MEDS ORDERED: MAPA500C PO (09:37)
[2020-04-09] MEDS ORDERED: AMOX875T2 PO (09:37)
[2020-04-09 10:06] LABS: BASO # 0.1 10^3/uL (0.0-0.2); BASO % 0.8 % (0.0-1.0); EOS # 0.1 10^3/uL (0.0-0.5); HEMATOCRIT 40.8 % (36.0-47.0); HEMOGLOBIN 13.4 g/dl (12.0-15.5); LYMPH # 2.1 10^3/uL (1.5-5.0); LYMPH % 29.7 % (24.0-44.0); MEAN CORPUSCULAR HEMOGLOBIN 31.8 pg (27.0-33.0); MEAN CORPUSCULAR HGB CONC 32.8 g/dl (32.0-36.5); MEAN CORPUSCULAR VOLUME 96.9 fl (80.0-96.0); MONO # 0.4 10^3/uL (0.0-0.8); MONO % 5.1 % (0.0-5.0); NEUTROPHILS # 4.4 10^3/uL (1.5-8.5); NEUTROPHILS % 62.3 % (36.0-66.0); PLATELET COUNT, AUTOMATED 250 10^3/uL (150-450); RED BLOOD COUNT 4.21 10^6/uL (4.00-5.40); WHITE BLOOD COUNT 7.1 10^3/uL (4.0-10.0)
[2020-04-09] MEDS ORDERED: NS 1,000 ML IV ONE (10:45)
[2020-04-09] MEDS ORDERED: MECLIZINE 25 MG TABLET PO ONE (10:45)
[2020-04-09 10:47] LABS: BLOOD UREA NITROGEN 19 MG/DL (7-18); CALCIUM LEVEL 9.2 MG/DL (8.5-10.1); CARBON DIOXIDE LEVEL 28 MEQ/L (21-32); CHLORIDE LEVEL 103 MEQ/L (98-107); CREATININE FOR GFR 0.92 MG/DL (0.55-1.30); GLOMERULAR FILTRATION RATE > 60.0 (>58); GLUCOSE, FASTING 108 MG/DL (70-100); POTASSIUM SERUM 4.1 MEQ/L (3.5-5.1); SODIUM LEVEL 138 MEQ/L (136-145)
[2020-04-09 13:51] LABS: HCG, SERUM QUALITATIVE NEGATIVE (NEGATIVE)
[2020-04-09 13:57] LABS: ALBUMIN 4.4 GM/DL (3.2-5.2); ALT/SGPT 31 U/L (12-78); BILIRUBIN,DIRECT < 0.1 MG/DL (0.0-0.2); BILIRUBIN,TOTAL 0.3 MG/DL (0.2-1.0); CK-MB VALUE MASS < 1.0 NG/ML (<3.6); CPK CREATINE PHOSPHOKINASE 121 U/L (26-192); LIPASE 100 U/L (73-393); MB/CK RELATIVE INDEX 0.83 (< OR =4); TOTAL PROTEIN 8.2 GM/DL (6.4-8.2); TROPONIN I < 0.02 NG/ML (< 0.10)
[2020-04-09 14:18] LABS: AMPHETAMINES LEVEL URINE NEGATIVE (NEGATIVE); BARBITURATES URINE NEGATIVE (NEGATIVE); BENZODIAZEPINES URINE NEGATIVE (NEGATIVE); CANNABINOIDS URINE POSITIVE (NEGATIVE); COCAINE METABOLITE URINE NEGATIVE (NEGATIVE); METHADONE URINE NEGATIVE (NEGATIVE); OPIATES URINE NEGATIVE (NEGATIVE); PHENCYCLIDINE URINE NEGATIVE (NEGATIVE)
[2020-04-09 14:28] VITALS: BP 116/77
[2020-04-09] MEDS ORDERED: BACI500O21 TOP (14:51)
[2020-04-09] MEDS ORDERED: MECL1TAB31 PO (15:01)
--- NOTE | 2020-04-10 13:27 | ECGEPIP ---
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
== END 2020-04-09 15:03 | disposition home or self-care (01) ==
LOC: M ED 09:19
DX: E86.0 Dehydration (principal); L73.9 Follicular disorder, unspecified; J45.909 Unspecified asthma, uncomplicated; F31.9 Bipolar disorder, unspecified; K58.9 Irritable bowel syndrome, unspecified; G43.909 Migraine, unspecified, not intractable, without status migrainosus; Z88.8 Allergy status to other drugs, medicaments and biological substances; Z91.018 Allergy to other foods; Z79.899 Other long term (current) drug therapy; F12.20 Cannabis dependence, uncomplicated

== ENCOUNTER 2020-06-13 16:10 | Emergency (ER) | payer OTHER ==
[~2020-06-13] VITALS: Ht 177.8 cm; Wt 81.8 kg
[~2020-06-13 16:10] MED LIST changes: +AMOX875T2 PO; +BACI500O21 TOP; -DICY20TA PO; +DICY20TA3 PO; +MAPA500C PO; +MECL1TAB31 PO
[2020-06-13] MEDS ORDERED: METOCLOPRAMIDE INJ 10MG/2ML VIAL (J2765 PER 1) IV ONE (16:50)
[2020-06-13] MEDS ORDERED: NS 1,000 ML IV ONE (16:50)
[2020-06-13 17:30] LABS: BASO % 0.4 % (0.0-1.0); EOS % 0.1 % (0.0-3.0); HEMATOCRIT 39.9 % (36.0-47.0); HEMOGLOBIN 13.8 g/dl (12.0-15.5); LYMPH # 0.7 10^3/uL (1.5-5.0); LYMPH % 6.5 % (24.0-44.0); MEAN CORPUSCULAR HEMOGLOBIN 31.8 pg (27.0-33.0); MEAN CORPUSCULAR HGB CONC 34.6 g/dl (32.0-36.5); MEAN CORPUSCULAR VOLUME 91.9 fl (80.0-96.0); MONO # 0.4 10^3/uL (0.0-0.8); MONO % 3.4 % (2.0-8.0); NEUTROPHILS # 9.5 10^3/uL (1.5-8.5); NEUTROPHILS % 89.2 % (36.0-66.0); PLATELET COUNT, AUTOMATED 295 10^3/uL (150-450); RED BLOOD COUNT 4.34 10^6/uL (4.00-5.40); WHITE BLOOD COUNT 10.6 10^3/uL (4.0-10.0)
--- NOTE | 2020-06-13 17:38 | REPVR ---
PROCEDURE INFORMATION: Exam: US Abdomen, Limited; Right Upper Quadrant Exam date and time: 06/13/2020 5:19 PM Age: 39 years old Clinical indication: Abdominal pain; Additional info: Ruq pain, vomiting TECHNIQUE: Imaging protocol: US abdomen. Real time ultrasound with image documentation. Limited exam focused on the right upper quadrant. COMPARISON: Abdomen, limited US 03/07/2017 7:16 AM FINDINGS: The patient terminated the examination prematurely. Gallbladder, common bile duct were not imaged. Liver: Liver measures 18.8 cm in craniocaudal span. Mild increase in liver echotexture suggests underlying infiltrative process such as fatty infiltration. Gallbladder: Not seen. Common bile duct: Not seen Pancreas: Visualized pancreas is unremarkable. Right kidney: No hydronephrosis in the visualized portion of the right kidney. Intraperitoneal space: No ascites in the visualized portion of the right upper quadrant IMPRESSION: 1. The patient terminated the examination prematurely due to pain. Gallbladder and common bile duct not imaged. 2. Hepatic steatosis. Electronically signed by: Amirah Hughes On 06/13/2020 17:38:53 PM
[2020-06-13 17:51] LABS: HCG, SERUM QUALITATIVE NEGATIVE (NEGATIVE)
[2020-06-13 17:53] LABS: ALBUMIN 4.2 GM/DL (3.2-5.2); ALT/SGPT 24 U/L (12-78); BILIRUBIN,DIRECT 0.2 MG/DL (0.0-0.2); BILIRUBIN,TOTAL 0.5 MG/DL (0.2-1.0); BLOOD UREA NITROGEN 17 MG/DL (7-18); CARBON DIOXIDE LEVEL 29 MEQ/L (21-32); CHLORIDE LEVEL 106 MEQ/L (98-107); CREATININE FOR GFR 0.91 MG/DL (0.55-1.30); GLOMERULAR FILTRATION RATE > 60.0 (>58); GLUCOSE, FASTING 96 MG/DL (70-100); LIPASE 42 U/L (73-393); POTASSIUM SERUM 3.6 MEQ/L (3.5-5.1); SODIUM LEVEL 142 MEQ/L (136-145); TOTAL PROTEIN 7.9 GM/DL (6.4-8.2)
[2020-06-13] MEDS ORDERED: ISOVUE-370 76% 100ML VIAL As Ordered ONE (18:20)
--- NOTE | 2020-06-13 18:39 | REPVR ---
PROCEDURE INFORMATION: Exam: CT Head Without Contrast Exam date and time: 06/13/2020 4:56 PM Age: 39 years old Clinical indication: Pain; Headache; Additional info: Headache, vomiting TECHNIQUE: Imaging protocol: Computed tomography of the head without contrast. Radiation optimization: All CT scans at this facility use at least one of these dose optimization techniques: automated exposure control; mA and/or kV adjustment per patient size (includes targeted exams where dose is matched to clinical indication); or iterative reconstruction. COMPARISON: CT Head without contrast 04/04/2020 2:28 PM FINDINGS: Brain: Normal. No hemorrhage. Unremarkable white matter. No mass effect. Cerebral ventricles: No ventriculomegaly. Bones/joints: Unremarkable. No acute fracture. Paranasal sinuses: Visualized sinuses are unremarkable. No fluid levels. Mastoid air cells: Visualized mastoid air cells are well aerated. Soft tissues: Unremarkable. IMPRESSION: No acute intracranial abnormality. Electronically signed by: Amirah Hughes On 06/13/2020 18:39:57 PM
--- NOTE | 2020-06-13 18:47 | REPVR ---
PROCEDURE INFORMATION: Exam: CT Abdomen And Pelvis With Contrast Exam date and time: 06/13/2020 5:57 PM Age: 39 years old Clinical indication: Abdominal pain; Additional info: Ruq abd pain TECHNIQUE: Imaging protocol: Computed tomography of the abdomen and pelvis with contrast. Radiation optimization: All CT scans at this facility use at least one of these dose optimization techniques: automated exposure control; mA and/or kV adjustment per patient size (includes targeted exams where dose is matched to clinical indication); or iterative reconstruction. Contrast material: ISOVUE 370; Contrast volume: 100 ml; Contrast route: INTRAVENOUS (IV); COMPARISON: CT ABD/PEL W/IV CONTRAST ONLY 04/04/2020 2:28 PM FINDINGS: Liver: Normal. No mass. Gallbladder and bile ducts: Normal. No calcified stones. No ductal dilation. Pancreas: Normal. No ductal dilation. Spleen: Calcified granulomas the spleen. Adrenal glands: Normal. No mass. Kidneys and ureters: 2.4 mm calcification lower pole left kidney. 2.4 mm calcification mid right kidney. No hydronephrosis Stomach and bowel: Scattered colonic diverticula.. No obstruction. No mucosal thickening. Appendix: No evidence of appendicitis. Intraperitoneal space: Unremarkable. No free air. No significant fluid collection. Vasculature: Unremarkable. No abdominal aortic aneurysm. Lymph nodes: Unremarkable. No enlarged lymph nodes. Urinary bladder: Unremarkable as visualized. Reproductive: Unremarkable as visualized. Bones/joints: Degenerative changes in the lower lumbar spine.. Moderate degenerative changes of the right hip joint. Soft tissues: Mild rectus diastasis. IMPRESSION: 1. Bilateral nonobstructing renal calculi. 2. Scattered colonic diverticula. No diverticulitis. Electronically signed by: Amirah Hughes On 06/13/2020 18:48:19 PM
[2020-06-13 19:00] VITALS: BP 116/63
[2020-06-13] MEDS ORDERED: ZOFR4TAB16 PO (19:31)
== END 2020-06-13 19:40 | disposition home or self-care (01) ==
LOC: M ED 16:10
DX: R11.2 Nausea with vomiting, unspecified (principal); R51.9 Headache, unspecified; N20.0 Calculus of kidney; F12.10 Cannabis abuse, uncomplicated; Z88.6 Allergy status to analgesic agent; Z88.8 Allergy status to other drugs, medicaments and biological substances; Z91.010 Allergy to peanuts; Z91.013 Allergy to seafood
CPT/HCPCS: 70450; 74177; 76705; 80048; 80076; 83690; 84703; 85025; 93041; 96361; 96374; 99284; J2765; Q9967

== ENCOUNTER → 2020-07-30 | Outpatient (REF) | payer OTHER ==
[~2020-07-30] MED LIST changes: +ZOFR4TAB16 PO
== END ==
LOC: M LAB REF 16:11
PROVIDERS: ATTEND Surgery
DX: Z91.010 Allergy to peanuts (principal); Z91.013 Allergy to seafood

== ENCOUNTER → 2020-10-07 | Outpatient (CLI) | payer OTHER ==
--- NOTE | 2020-10-07 15:22 | REP ---
INDICATION: LT KNEE PAIN SWELLING ? DVT COMPARISON: None. TECHNIQUE: Arrington scale and color Doppler evaluation using linear high frequency transducer. FINDINGS: Ultrasound examination of the left lower extremity deep venous structures from the common femoral vein through the calf/ankle to include the peroneal, and tibial veins demonstrates normal compressibility flow and wave patterns in response to respiration and augmentation. There is no evidence for deep venous thrombosis. Contralateral CFV is patent and normal. IMPRESSION: No evidence for deep venous thrombosis. <Electronically signed by Regino Jones > 10/07/20 [id number]
== END ==
LOC: M RAD 14:26
PROVIDERS: ATTEND Physician Assistant
DX: M25.562 Pain in left knee (principal)

== ENCOUNTER 2021-01-08 05:52 | Emergency (ER) | payer OTHER ==
[~2021-01-08] VITALS: Ht 175.3 cm; Wt 86.8 kg
[2021-01-08 05:52] VITALS: BP 138/67
== END 2021-01-08 06:03 | disposition left against medical advice (07) ==
LOC: M ED 05:52
DX: Z53.29 Procedure and treatment not carried out because of patient's decision for other reasons (principal)

== ENCOUNTER 2021-01-19 08:15 | Emergency (ER) | payer OTHER ==
[~2021-01-19] VITALS: Ht 175.3 cm; Wt 84.8 kg
[2021-01-19] MEDS ORDERED: SUMAtriptan SUCCINATE 6 MG/0.5 ML VIAL SC ONE (09:10)
[2021-01-19] MEDS ORDERED: KETOROLAC 30 MG/ML 1ML VIAL IV ONE (09:10)
[2021-01-19] MEDS ORDERED: ONDANSETRON 4MG/2ML VIAL IV ONE (09:10)
--- NOTE | 2021-01-19 09:48 | REP ---
INDICATION: atraumatic swelling dorsal, tenderness 1st,2nd mc COMPARISON: None. TECHNIQUE: AP, lateral, bilateral oblique views right hand. FINDINGS: The osseous structures and joint spaces are intact and normal. There is no evidence for acute fracture or dislocation. Surrounding soft tissues are unremarkable. No subcutaneous emphysema or radiodense foreign body. IMPRESSION: Normal right hand radiographs. <Electronically signed by Regino Jones > 01/19/21 [id number]
[2021-01-19 10:34] LABS: BASO % 0.7 % (0.0-1.0); EOS # 0.1 10^3/uL (0.0-0.5); HEMATOCRIT 39.8 % (36.0-47.0); HEMOGLOBIN 13.2 g/dl (12.0-15.5); LYMPH # 1.8 10^3/uL (1.5-5.0); MEAN CORPUSCULAR HEMOGLOBIN 31.7 pg (27.0-33.0); MEAN CORPUSCULAR HGB CONC 33.2 g/dl (32.0-36.5); MEAN CORPUSCULAR VOLUME 95.4 fl (80.0-96.0); MONO # 0.3 10^3/uL (0.0-0.8); MONO % 4.9 % (2.0-8.0); NEUTROPHILS # 3.6 10^3/uL (1.5-8.5); NEUTROPHILS % 61.2 % (36.0-66.0); PLATELET COUNT, AUTOMATED 241 10^3/uL (150-450); RED BLOOD COUNT 4.17 10^6/uL (4.00-5.40); WHITE BLOOD COUNT 5.9 10^3/uL (4.0-10.0)
--- NOTE | 2021-01-19 10:53 | REP ---
INDICATION: CVA - Nursing interventions must not delay CT COMPARISON: 04/04/2020, 06/13/2020 TECHNIQUE: Axial noncontrast images from the skull base to the vertex with coronal reformations. This CT examination was performed using the following dose reduction techniques: Automated exposure control, adjustment of mA and/or kv according to the patient's size, and use of iterative reconstruction technique. FINDINGS: The ventricles, sulci, and cisterns are normal in position and appearance. Arrington-white differentiation is maintained. No acute intracranial hemorrhage, mass/mass effect, pathology or trauma/injury. No evidence for acute infarction. No extra-axial fluid collection. Calvarium is intact. Paranasal sinuses and mastoid air cells are clear. IMPRESSION: Normal noncontrast head CT. No evidence for acute intracranial pathology or trauma/injury. <Electronically signed by Regino Jones > 01/19/21 [id number]
[2021-01-19 13:28] VITALS: BP 136/84
== END 2021-01-19 13:29 | disposition home or self-care (01) ==
LOC: M ED 08:15
DX: G43.909 Migraine, unspecified, not intractable, without status migrainosus (principal); M79.641 Pain in right hand; R20.2 Paresthesia of skin; I10 Essential (primary) hypertension; J45.909 Unspecified asthma, uncomplicated; Z87.19 Personal history of other diseases of the digestive system; Z79.899 Other long term (current) drug therapy; Z88.8 Allergy status to other drugs, medicaments and biological substances; Z91.010 Allergy to peanuts; Z91.018 Allergy to other foods
CPT/HCPCS: 70450; 73130; 80047; 84702; 85025; 96374; 96375; 99284; J1885; J2405

== ENCOUNTER → 2021-03-27 | Outpatient (CLI) | payer MEDICAID, OTHER | LOC: M RAD 11:25 | PROVIDERS: ATTEND Nurse Practitioner Family | DX: R10.817 Generalized abdominal tenderness (principal) ==

== ENCOUNTER → 2021-03-27 | Outpatient (CLI) | payer OTHER, MEDICAID ==
[2021-03-27 12:44] LABS: BASO # 0.1 10^3/uL (0.0-0.2); BASO % 0.9 % (0.0-1.0); EOS # 0.2 10^3/uL (0.0-0.5); EOS % 3.4 % (0.0-3.0); HEMATOCRIT 39.2 % (36.0-47.0); HEMOGLOBIN 13.1 g/dl (12.0-15.5); LYMPH # 1.9 10^3/uL (1.5-5.0); LYMPH % 29.1 % (24.0-44.0); MEAN CORPUSCULAR HEMOGLOBIN 31.6 pg (27.0-33.0); MEAN CORPUSCULAR HGB CONC 33.4 g/dl (32.0-36.5); MEAN CORPUSCULAR VOLUME 94.5 fl (80.0-96.0); MONO # 0.3 10^3/uL (0.0-0.8); MONO % 5.1 % (2.0-8.0); NEUTROPHILS % 61.3 % (36.0-66.0); PLATELET COUNT, AUTOMATED 246 10^3/uL (150-450); RED BLOOD COUNT 4.15 10^6/uL (4.00-5.40); WHITE BLOOD COUNT 6.5 10^3/uL (4.0-10.0)
[2021-03-27 13:35] LABS: ALT/SGPT 54 U/L (12-78); AMYLASE 63 U/L (25-115); BILIRUBIN,TOTAL 0.3 MG/DL (0.2-1.0); BLOOD UREA NITROGEN 10 MG/DL (7-18); CALCIUM LEVEL 9.3 MG/DL (8.5-10.1); CARBON DIOXIDE LEVEL 31 MEQ/L (21-32); CHLORIDE LEVEL 107 MEQ/L (98-107); CREATININE FOR GFR 0.88 MG/DL (0.55-1.30); GLOMERULAR FILTRATION RATE > 60.0 (>58); GLUCOSE, FASTING 96 MG/DL (70-100); HCG, SERUM QUANTITATIVE < 1.0 MIU/ML; LIPASE 99 U/L (73-393); POTASSIUM SERUM 4.6 MEQ/L (3.5-5.1); SODIUM LEVEL 139 MEQ/L (136-145); TOTAL PROTEIN 6.9 GM/DL (6.4-8.2)
== END ==
LOC: M WUC 10:27 → M RAD 10:27
PROVIDERS: ATTEND Nurse Practitioner Family
DX: R10.84 Generalized abdominal pain (principal)

== ENCOUNTER → 2021-05-21 | Outpatient (CLI) | payer OTHER | LOC: M WHC 13:54 | PROVIDERS: ATTEND Physician Assistant | DX: Z12.31 Encounter for screening mammogram for malignant neoplasm of breast (principal) ==

== ENCOUNTER 2021-06-15 08:57 | Emergency (ER) | payer OTHER ==
[~2021-06-15] VITALS: Ht 175.3 cm; Wt 82.3 kg
[2021-06-15] MEDS ORDERED: KETOROLAC 30 MG/ML 1ML VIAL IV ONE (10:00)
[2021-06-15] MEDS ORDERED: METOCLOPRAMIDE INJ 10MG/2ML VIAL (J2765 PER 1) IV ONE (10:00)
[2021-06-15 11:53] VITALS: BP 122/72
== END 2021-06-15 12:25 | disposition home or self-care (01) ==
LOC: M ED 08:57 → EDBD 08:57 → M ED 12:25
DX: G43.909 Migraine, unspecified, not intractable, without status migrainosus (principal); J06.9 Acute upper respiratory infection, unspecified; J45.909 Unspecified asthma, uncomplicated; I10 Essential (primary) hypertension; F31.9 Bipolar disorder, unspecified; F43.10 Post-traumatic stress disorder, unspecified; Z88.6 Allergy status to analgesic agent; Z88.8 Allergy status to other drugs, medicaments and biological substances; Z91.013 Allergy to seafood; Z87.891 Personal history of nicotine dependence; Z79.899 Other long term (current) drug therapy
CPT/HCPCS: 36415; 70450; 96374; 96375; 99284; J1885; J2765

== ENCOUNTER 2021-07-25 18:56 | Emergency (ER) | payer OTHER, MEDICAID ==
[~2021-07-25] VITALS: Ht 175.3 cm; Wt 85.3 kg
[2021-07-25 19:05] VITALS: BP 105/63
[2021-07-25] MEDS ORDERED: KETOROLAC 30 MG/ML 1ML VIAL IM ONE (20:10)
== END 2021-07-25 21:49 | disposition home or self-care (01) ==
LOC: M ED 18:56
DX: M25.562 Pain in left knee (principal); Z79.899 Other long term (current) drug therapy
CPT/HCPCS: 73564; 93971; 96372; 99284; J1885

== ENCOUNTER → 2022-01-19 | Outpatient (REF) | payer OTHER | LOC: M LAB REF 16:53 | PROVIDERS: ATTEND Nurse Practitioner Family | DX: R94.6 Abnormal results of thyroid function studies (principal) ==

== ENCOUNTER → 2022-04-21 | Outpatient (REF) | payer OTHER ==
[2022-04-21 17:34] LABS: FREE T4 1.01 NG/DL (0.89-1.76); THYROID STIMULATING HORMONE 0.547 uIU/ML (0.55-4.78)
== END ==
LOC: M LAB REF 16:31
PROVIDERS: ATTEND Nurse Practitioner Family
DX: R94.6 Abnormal results of thyroid function studies (principal)

== ENCOUNTER 2022-05-01 12:31 | Emergency (ER) | payer OTHER ==
[~2022-05-01] VITALS: Ht 180.3 cm; Wt 84.0 kg
[2022-05-01] MEDS ORDERED: ABIL1TAB13 PO (12:57)
[2022-05-01] MEDS ORDERED: HYDR-643 PO (12:57)
[2022-05-01] MEDS ORDERED: CLONI1TA PO (12:57)
[2022-05-01 15:27] VITALS: BP 119/76
== END 2022-05-01 15:37 | disposition home or self-care (01) ==
LOC: M ED 12:31
DX: S83.91XA Sprain of unspecified site of right knee, initial encounter (principal); X50.0XXA Overexertion from strenuous movement or load, initial encounter; Y99.0 Civilian activity done for income or pay; Z88.6 Allergy status to analgesic agent; Z88.8 Allergy status to other drugs, medicaments and biological substances; Z91.010 Allergy to peanuts; Z91.013 Allergy to seafood; Z79.899 Other long term (current) drug therapy

== ENCOUNTER → 2022-07-19 | Outpatient (REF) | payer OTHER ==
[~2022-07-19] MED LIST changes: +ABIL1TAB13 PO; +CLONI1TA PO; +HYDR-643 PO
[2022-07-19 17:33] LABS: THYROID STIMULATING HORMONE 0.499 uIU/ML (0.55-4.78)
[2022-07-19 17:34] LABS: FREE T4 0.99 NG/DL (0.89-1.76)
== END ==
LOC: M LAB REF 16:12
PROVIDERS: ATTEND Nurse Practitioner Family
DX: R94.6 Abnormal results of thyroid function studies (principal)

== ENCOUNTER → 2022-08-09 | Outpatient (CLI) | payer MEDICAID | LOC: M OUTALCOH 12:42 | PROVIDERS: ATTEND Psychiatry & Neurology Psychiatry | DX: Z03.89 Encounter for observation for other suspected diseases and conditions ruled out (principal) ==

== ENCOUNTER 2022-08-16 12:54 | Outpatient (RCR) | payer MEDICAID | END 2022-09-08 | LOC: M OUTALCOH 12:54 | PROVIDERS: ATTEND Psychiatry & Neurology Psychiatry | DX: Z03.89 Encounter for observation for other suspected diseases and conditions ruled out (principal) ==

== ENCOUNTER → 2022-10-08 | Outpatient (REF) | payer MEDICAID | LOC: M LAB REF 12:09 | PROVIDERS: ATTEND Nurse Practitioner Family | DX: R94.6 Abnormal results of thyroid function studies (principal) ==

== ENCOUNTER → 2022-12-02 | Outpatient (REF) | LOC: M EMP 09:46 | PROVIDERS: ATTEND Family Medicine | DX: Z11.52 Encounter for screening for COVID-19 (principal) ==

== ENCOUNTER → 2023-01-26 | Outpatient (CLI) | payer OTHER, SELFPAY ==
[~2023-01-26] MED LIST changes: +MECL-209 PO; -MECL1TAB31 PO
== END ==
LOC: M RAD 09:33
PROVIDERS: ATTEND Nurse Practitioner Family
DX: E07.9 Disorder of thyroid, unspecified (principal)

== ENCOUNTER → 2023-02-21 | Outpatient (REF) | LOC: M EMP 10:17 | PROVIDERS: ATTEND Family Medicine | DX: Z11.52 Encounter for screening for COVID-19 (principal) ==

== ENCOUNTER → 2023-03-28 | Outpatient (REF) | payer OTHER ==
[~2023-03-28] MED LIST changes: -EFFE37.5 PO; +EFFE37.52 PO
== END ==
LOC: M LAB REF 17:21
PROVIDERS: ATTEND Nurse Practitioner Family
DX: R79.89 Other specified abnormal findings of blood chemistry (principal)

== ENCOUNTER → 2023-07-01 | Outpatient (CLI) | payer OTHER ==
[2023-07-01 14:16] LABS: FREE T4 0.97 NG/DL (0.89-1.76); THYROID STIMULATING HORMONE 0.202 uIU/ML (0.55-4.78)
[2023-07-01 14:19] LABS: TOTAL T3 128.4 NG/DL (60.0-181.0)
== END ==
LOC: M WUC 11:27
PROVIDERS: ATTEND Nurse Practitioner Family
DX: R94.6 Abnormal results of thyroid function studies (principal)

== ENCOUNTER → 2023-07-20 | Outpatient (CLI) | payer OTHER | LOC: M WHC 11:13 | PROVIDERS: ATTEND Nurse Practitioner Family | DX: N63.0 Unspecified lump in unspecified breast (principal) ==

== ENCOUNTER → 2023-08-31 | Outpatient (REF) | payer OTHER ==
[2023-08-31 13:45] LABS: BASO % 0.6 % (0.0-1.0); EOS # 0.1 10^3/uL (0.0-0.5); EOS % 0.9 % (0.0-3.0); HEMATOCRIT 40.2 % (36.0-47.0); HEMOGLOBIN 13.5 g/dl (12.0-15.5); LYMPH # 1.8 10^3/uL (1.5-5.0); LYMPH % 25.9 % (24.0-44.0); MEAN CORPUSCULAR HGB CONC 33.6 g/dl (32.0-36.5); MEAN CORPUSCULAR VOLUME 92.2 fl (80.0-96.0); MONO # 0.3 10^3/uL (0.0-0.8); MONO % 4.9 % (2.0-8.0); NEUTROPHILS # 4.7 10^3/uL (1.5-8.5); NEUTROPHILS % 67.4 % (36.0-66.0); PLATELET COUNT, AUTOMATED 220 10^3/uL (150-450); RED BLOOD COUNT 4.36 10^6/uL (4.00-5.40)
[2023-08-31 15:08] LABS: ALBUMIN 3.7 G/DL (3.2-5.2); ALKALINE PHOSPHATASE 81 U/L (46-116); ALT/SGPT 95 U/L (7.0-40); AST/SGOT 32 U/L (<34); BILIRUBIN,TOTAL 0.6 MG/DL (0.3-1.2); BLOOD UREA NITROGEN 13 MG/DL (9-23); CALCIUM LEVEL 9.1 MG/DL (8.5-10.1); CARBON DIOXIDE LEVEL 27 MMOL/L (20-31); CHLORIDE LEVEL 106 MMOL/L (98-107); CHOLESTEROL LEVEL 143 MG/DL (<200); CHOLESTEROL RISK RATIO 2.02 (<5); GLOMERULAR FILTRATION RATE > 60.0 (>58); GLUCOSE, FASTING 130 MG/DL (60-100); HDL CHOLESTEROL 70.6 MG/DL (>40); LDL CHOLESTEROL 63.2 MG/DL (<100); MAGNESIUM LEVEL 1.7 MG/DL (1.8-2.4); NON-HDL-C 72.4 MG/DL; POTASSIUM SERUM 4.7 MMOL/L (3.5-5.1); SODIUM LEVEL 140 MMOL/L (136-145); TOTAL PROTEIN 6.3 G/DL (5.7-8.2); TRIGLYCERIDES LEVEL 46 MG/DL (<150)
[2023-08-31 15:13] LABS: TOTAL 25(OH) VITAMIN D 33.2 NG/ML (20.0-100.0)
[2023-08-31 15:14] LABS: THYROID STIMULATING HORMONE 0.258 uIU/ML (0.55-4.78)
[2023-08-31 17:14] LABS: HEMOGLOBIN A1c 4.9 % (4.0-6.0)
== END ==
LOC: M LAB REF 12:31
PROVIDERS: ATTEND Nurse Practitioner Family
DX: E66.3 Overweight (principal); E55.9 Vitamin D deficiency, unspecified

== ENCOUNTER → 2023-11-01 | Outpatient (REF) | payer OTHER ==
[~2023-11-01] MED LIST changes: +ONDA-282 PO; -ONDA4TAB6 PO
[2023-11-03 14:47] LABS: HPV APTIMA Not Detected (Not Detected)
== END ==
LOC: M PLALAB 15:14
PROVIDERS: ATTEND Obstetrics & Gynecology
DX: Z32.02 Encounter for pregnancy test, result negative (principal)